=== PATIENT | male | born 1955 | race Caucasian/White ===

== ENCOUNTER → 2017-09-30 | Outpatient (CLI) | payer OTHER ==
[~2017-09-30] MED LIST: ASPI1TAB57 PO; ASPI81 PO; FINA5TAB2 PO; MELO15TA20 PO; METO25 PO; METO25TA3 PO; MULT-65 PO; NAPR220T95 PO; PRIL40CA PO; RAPA4CAP PO; TAMS0.4C4 PO
[2017-09-30 10:36] LABS: HEMATOCRIT 42.3 % (39.0-51.0); HEMOGLOBIN 14.7 GM/DL (13.0-17.0); MEAN CELL VOLUME 91.6 FL (80.0-100.0); MEAN CORPUSCULAR HEMOGLOBIN 31.8 PG (27.0-34.0); MEAN CORPUSCULAR HGB CONC 34.7 % (32.0-36.0); MEAN PLATELET VOLUME 8.4 FL (7.0-11.0); PLATELET COUNT 220 TH/MM3 (150-450); RED BLOOD COUNT 4.62 MIL/MM3 (4.50-5.90); RED CELL DISTRIBUTION WIDTH 12.8 % (11.6-17.2); WHITE BLOOD COUNT 8.7 TH/MM3 (4.0-11.0)
[2017-09-30 10:43] LABS: PROTHROMBIN TIME - PATIENT 10.4 SEC (9.8-11.6)
[2017-09-30 10:48] LABS: BILIRUBIN, URINE NEG (NEG); BLOOD, URINE NEG (NEG); GLUCOSE,URINE NEG (NEG); KETONE, URINE NEG (NEG); MUCUS URINE FEW /lpf (OCC); NITRITE,URINE NEG (NEG); URINE COLOR YELLOW (YELLW/STRAW); URINE LEUKOCYTE ESTERASE NEG (NEG)
[2017-09-30 11:31] LABS: CALCIUM 8.8 MG/DL (8.5-10.1); CREATININE 0.94 MG/DL (0.60-1.30)
--- NOTE | 2017-09-30 21:23 | EKG ---
Date Performed: 09/30/2017 Time Performed: 09:50:14 PTAGE: 62 years EKG: SINUS BRADYCARDIA LOW QRS VOLTAGE IN PRECORDIAL LEADS Since the prior tracing, there has be en no significant change BORDERLINE ECG PREVIOUS TRACING : 06/17/2015 11.13 DOCTOR: Bob Caraballo Interpretating Date/Time 09/30/2017 21:23:07
== END ==
LOC: CPRE 09:30
PROVIDERS: ATTEND Orthopaedic Surgery
DX: Z01.810 Encounter for preprocedural cardiovascular examination (principal); Z01.812 Encounter for preprocedural laboratory examination; M16.11 Unilateral primary osteoarthritis, right hip; M79.609 Pain in unspecified limb; R94.31 Abnormal electrocardiogram [ECG] [EKG]
CPT/HCPCS: 36415; 80048; 81001; 85027; 85610; 85730; 93005

== ENCOUNTER 2017-10-18 05:12 | Inpatient (IN) | payer OTHER ==
[~2017-10-18] VITALS: Ht 182.9 cm; Wt 132.7 kg
[~2017-10-18 05:12] MED LIST changes: -ASPI81 PO; -METO25 PO; -NAPR220T95 PO; -PRIL40CA PO; -RAPA4CAP PO
[2017-10-18] MEDS ORDERED: GENTAMICIN SULFATE 80 MG/2 ML VIAL ONE ×2 (05:39→05:56)
[2017-10-18] MEDS ORDERED: AMBI10TA PO (05:39)
[2017-10-18] MEDS ORDERED: LIVA2TAB PO (05:40)
[2017-10-18] MEDS ORDERED: LACTATED RINGER'S 1000 ML IV PRN (05:45)
[2017-10-18] MEDS ORDERED: SODIUM CHLORID 0.9% 500 ML IV PRN (05:45)
[2017-10-18] MEDS ORDERED: METOPROLOL TARTRATE 25 MG TAB PO PRN (05:45)
[2017-10-18] MEDS ORDERED: CHLORHEXIDINE GLUCONATE 2 % 1 PACK (2 CLOTHS) TOPICAL PRN (05:45)
[2017-10-18] MEDS ORDERED: CHLORHEXIDINE GLUCONATE 4% SOLN 120 ML BTL TOPICAL SCH (05:45)
[2017-10-18] MEDS ORDERED: POVIDONE IODINE 5% (ANTISEPSIS KIT) 4 APPLICATIONS EACH NARE PRN (05:45)
[2017-10-18] MEDS ORDERED: ceFAZolin 2 GM PREMIX 0 ML ONE (05:56)
[2017-10-18] MEDS: ceFAZolin 3,000 MG/NS 100 ML (if >120 kg) IV SCH ×4 (06:30→08:13)
[2017-10-18] MEDS ORDERED: ACETAMINOPHEN 1000 MG/100 ML 100 ML IV ONE (06:40)
[2017-10-18] MEDS ORDERED: PROPOFOL 500 MG/50 ML INJ 50 ML ONE (06:41)
[2017-10-18] MEDS ORDERED: FAMOTIDINE 20 MG/2 ML VIAL ONE (06:41)
--- NOTE | 2017-10-18 06:56 | HHI.FF ---
Face to Face Verification Diagnosis: (1) Status post total hip replacement, right Physical Therapy Gait training Hip: Total hip, Protocol: Right, Posterior hip precautions, Progress to weight bearing Canvas Knee Splint: When in bed & 2 pillows btw thighs Right LE Weight Bearing: WB as tolerated Right LE Range of Motion: Active ROM Nursing Nursing: Dressing changes (to begin on postop day 7.) Dressing Changes: Daily dressing change (to begin on postop day 7.), Coverderm/ Primapore Additional Instructions Remove Steri-strips on postop day 14. I have seen patient Cipriano Burgess on 10/18/17. My clinical findings support the need for the requested home health care services because: Ltd mobility - disease progression Limited ability to care for self High risk of falls I certify that my clinical findings support that this patient is homebound because: Post-op weakness Unsteady gait/balance Unsafe to leave home unassisted Delfino Gtz MD (Charles) Oct 18, 2017 06:56
[2017-10-18] MEDS ORDERED: ECASA81 PO (06:58)
[2017-10-18] MEDS ORDERED: TRANEXAMIC ACID IV SCH ×5 (07:00→10:00)
[2017-10-18] MEDS ORDERED: EXPAREL PERI-ARTICULAR INJECTION (TOTAL VOL. 60 ML) P-ARTICULR SCH ×2 (07:00)
[2017-10-18] MEDS ORDERED: MORPHINE SULFATE 8 MG/ML INJ IV PUSH PRN (07:00)
[2017-10-18] MEDS ORDERED: MAGNESIUM HYDROXIDE SUSP 30 ML CUP PO PRN (07:00)
[2017-10-18] MEDS ORDERED: ZOLPIDEM TARTRATE 5 MG TAB PO PRN (07:00)
[2017-10-18] MEDS ORDERED: BISACODYL 10 MG SUPP RECTAL PRN (07:00)
[2017-10-18] MEDS ORDERED: SODIUM CHLORIDE 0.9% IV SCH ×5 (07:00→10:00)
[2017-10-18] MEDS ORDERED: ONDANSETRON HCL 4 MG/2 ML VIAL IVP PRN (07:00)
[2017-10-18] MEDS: ASPIRIN EC 81 MG TABEC PO SCH ×2 (09:00→20:09)
[2017-10-18] MEDS: MULTIVITAMIN TAB PO SCH (09:00)
[2017-10-18] MEDS: PRAVASTATIN SOD 40 MG TAB PO SCH (09:00)
[2017-10-18] MEDS: FINASTERIDE 5 MG TAB PO SCH (09:00)
[2017-10-18] MEDS: METOPROLOL TARTRATE 25 MG TAB PO SCH ×2 (09:00→20:10)
[2017-10-18] MEDS ORDERED: ALBUMIN 5% INJ 500 ML IV ONE (09:02)
[2017-10-18 10:11] LABS: HEMATOCRIT 36.3 % (39.0-51.0); HEMOGLOBIN 12.3 GM/DL (13.0-17.0)
--- NOTE | 2017-10-18 10:38 | HHI.PR ---
Immediate Post Op Note Procedure Date: Oct 18, 2017 Pre Op Diagnosis: (1) Primary osteoarthritis of right hip Post Op Diagnosis: (1) Primary osteoarthritis of right hip Surgeon: Scooter Gtz M.D. English Tutor(s): YANIV Baron Procedure: Right total hip arthroplasty using [employer] prosthesis. Findings: There was severe osteoarthritis in the right hip with osteophytes and expose subchondral bone. Complications: None Specimen(s) removed: None Estimated blood loss: 1500ml Anesthesia: Spinal, Local (with Exparel) Drains: None IVF Patient to: PACU Patient Condition: Good Implant/Devices: SEE IMPLANT LOG (if applicable) Date/Time of Procedure: SEE SURGICAL CARE RECORD Delfino Gtz MD (Charles) Oct 18, 2017 10:38
--- NOTE | 2017-10-18 10:48 | PD.OP ---
Operative Report Date of Surgery: Oct 18, 2017 Preoperative Diagnosis: (1) Primary osteoarthritis of right hip Postoperative Diagnosis: (1) Primary osteoarthritis of right hip Procedure: Right total hip arthroplasty using [place] prosthesis. Anesthesia: Spinal with supplemental local using Exparel Surgeon: Scooter Gtz M.D. Polymer Engineer(s): YANIV Baron Operation and Findings: Indications and Findings: This 62-year-old man has had progressive worsening of pain in his right hip over the past 3 years. This is progressively worsening to the point that he has difficulty getting up from a seated position, has pain when walking and has continued difficulty with his hip. He has not responded to anti-inflammatory agents, analgesics, exercises, intra-articular corticosteroids, ambulatory aids and physical therapy. Imaging studies show loss of articular cartilage [id number] particularly in the depths of the day with some osteophytes in the femoral head and acetabulum. Was seen most on the MRI. Operative findings show severe osteoarthritis in the hip with loss of articular cartilage to expose subchondral bone the femur and the acetabulum with some small osteophytes and some eburnation. The prosthesis used was a [place] prosthesis with the femoral component being an Accolade II, size 7 x 132 with a Biolox Delta head size 36 mm outer diameter with a -4 mm neck length in the acetabulum being a Tritanium cluster shell size 54 mm outer diameter with a 0 liner of X3 polyethylene with a 36 mm inner diameter. The patient was brought to the clean air operating suite and a spinal anesthetic was administered. The patient was then positioned into a lateral position with the right hip up on a Electronifieet lateral positioner. The hip and lower extremity were then prepped with alcohol, Hibiclens and ChloraPrep and draped in the usual manner with the hip draped free. Patient received prophylactic antibiotics preoperatively. The patient also received tranexamic acid preoperatively. An appropriate timeout procedure was carried out. An incision was then made from the midportion of the greater trochanter proximally and posteriorly paralleling the fibers of the gluteus brennen. The incision was deepened through subcutaneous tissues down to the fascia jesu and gluteus fascia. The gluteus fascia was then split longitudinally in line with its fibers up to the upper portion of the fascia jesu. With wound towels in place, the Charnley retractor was inserted. The sciatic nerve was identified and protected throughout the procedure. Dissection was then carried down to the interval between the gluteus minimus and the piriformis. A retractor was inserted. The piriformis and obturator conjoined tendon was released from the greater trochanter and reflected off the capsule. A capsulotomy was made longitudinally along the femoral neck to the base of the femoral neck and then curved distally along the posterior aspect of the greater trochanter. The hip was then internally rotated. Further release of the external rotators was carried out exposing the hip. The hip was then dislocated. The femoral neck was transected at the appropriate level using the oscillating saw placement of appropriate retractors. The femoral head was then removed. Preparation of the femur was initiated with a box osteotome followed by a curet to identify the medullary canal. Broaching was then initiated with the size 0 broach and went and 1 size increments up to size 7. The broach handle was removed. The femoral neck was then trimmed with a calcar planar. Attention was then directed to the acetabulum. Soft tissues were debrided from the acetabulum. Retractors were placed about the acetabulum. Reaming was then initiated with the 47 millimeter reamer and went in to millimeter increments up to size 51 and then 1 mm increments up to the 53 millimeter diameter reamer. A trial reduction with the 54 millimeter trial prosthesis was carried out. When this was deemed to be appropriate, the trial prosthesis was removed. The acetabulum was then irrigated and cleaned. The actual prosthesis as noted above was then impacted into place and seated appropriately. Drill holes were then made and sounded. Appropriate sized screws were then inserted to stabilize the acetabulum further. The liner as noted above was then inserted into the acetabular shell and impacted into place. Osteophytes were trimmed from the acetabulum. Local anesthetic was then administered throughout the area of the acetabulum and anterior aspect of the femur. The trial neck was then placed on the broach for the above-noted prosthesis. The femoral head trial was placed onto the femoral neck with the external diameter of the head being 36 millimeters and the neck length being -5 millimeters. A trial reduction was then carried out. Re-broaching was then carried out in the same technique was again carried out. The stability, leg length and motion were excellent. There was no pistoning. The trial prosthesis was removed. The broach was removed. The femoral component was then impacted into the medullary canal of the femur after irrigation and suctioning. When this was appropriately seated a trial reduction was again carried out with the trial prosthesis. Again, there was no pistoning. The leg length was appropriate. The stability and motion were excellent. The trial prosthesis was then removed. After cleaning and drying the trunion of the femoral component, the above-noted femoral head was impacted onto the trunnion. The hip was then reduced. The stability and mobility were again checked along with leg lengths as noted above. The hip was then positioned appropriately and closure commenced after the remainder of the local anesthetic was injected throughout the hip. The external rotators and capsule were then repaired with #1 Vicryl interrupted transosseous sutures with a Krakw technique to reattach the external rotators and capsule to the posterior aspect of the greater trochanter. The capsule itself on the superior aspect was closed with #1 Vicryl interrupted [id number] sutures. The sciatic nerve was again inspected. The fascia jesu and gluteus fascia were then repaired with #1 Vicryl interrupted [id number] sutures. The subcutaneous tissues were closed with 2-0 Vicryl interrupted simple sutures with buried knots. The skin was closed with a continuous subcuticular closure of 4-0 Monocryl. The wound was then approximated with Steri-Strips. A silver impregnated dressing was applied to the hip. A knee immobilizer was applied to the leg. The patient was then transferred from the operating room to the recovery room in satisfactory condition having tolerated the procedure well. Counts are correct. Specimens: None. Estimated blood loss: 1500 mL Delfino Gtz MD (Charles) Oct 18, 2017 10:48
[2017-10-18] MEDS ORDERED: HYDR-3580 PO (10:56)
[2017-10-18] MEDS: LACTATED RINGER'S 1000 ML INJ 1,000 ML IV SCH ×2 (11:00→20:21)
[2017-10-18] MEDS ORDERED: HYDROmorphone HCL PF 2 MG/ML VIAL ONE (11:05)
[2017-10-18] MEDS ORDERED: MIDAZOLAM HCL 2 MG/2 ML VIAL ONE (11:11)
[2017-10-18] MEDS ORDERED: *morphine SULFATE 10 MG/ML PERIprocedure ONLY ONE ×2 (11:37→12:56)
[2017-10-18] MEDS ORDERED: *MEPERIDINE 25 MG INJ VIAL PERIprocedural Use ONLY ONE (11:48)
--- NOTE | 2017-10-18 11:54 | RADRPT ---
EXAM DATE/TIME: 10/18/2017 11:18 [facility] COMPARISON: No previous studies available for comparison. INDICATIONS : Post op right hip surgery MEDICAL HISTORY : None. SURGICAL HISTORY : None. ENCOUNTER: Initial ACUITY: 1 day PAIN SCORE: 8/10 LOCATION: Right hip FINDINGS: 3 images performed in the recovery room after total hip arthroplasty demonstrate a non-cemented arthr oplasty with superior acetabular screw. Alignment is anatomic. No radiopaque foreign bodies. CONCLUSION: Expected postoperative changes status post total hip arthroplasty. Hunter Wagner MD on October 18, 2017 at 11:52 Board Certified Radiologist. This report was verified electronically.
[2017-10-18] MEDS ORDERED: LACTATED RINGER'S 1000 ML INJ 2,000 ML IV ONE (12:00)
[2017-10-18] MEDS ORDERED: PHENYLEPH/NS 1000 MCG/10 ML SYR IV ONE (12:00)
[2017-10-18] MEDS ORDERED: PROPOFOL 200 MG/20 ML AMP IV ONE (12:00)
[2017-10-18] MEDS ORDERED: DEXAMETHASONE SOD PHOS 4 MG/ML VIAL IV ONE (12:00)
[2017-10-18] MEDS ORDERED: ePHEDrine/NS 25 MG/5 ML SYRINGE IV ONE (12:00)
[2017-10-18] MEDS ORDERED: PHENYLEPHRINE HCL 10 MG/ML VIAL IV ONE (12:00)
[2017-10-18] MEDS ORDERED: ONDANSETRON HCL 4 MG/2 ML VIAL IV ONE (12:00)
[2017-10-18] MEDS ORDERED: KETOROLAC TROMETHAMINE 30 MG/ML (IVP) VIAL ONE (12:10)
--- NOTE | 2017-10-18 13:25 | PD.CONS ---
HPI Service [facility] Consult Requested By Orthopedic surgery Reason for Consult Medical management Primary Care Physician Amol Muniz MD Diagnoses: History of Present Illness 62-year-old man with a history of hypertension, hyperlipidemia, right severe hip OA and despite medical management including corticosteroid 3 injections, physical therapy and NSAIDs continue to have severe right knee pain affecting his daily living of activity including ambulation. The patient was taken to the operating room and underwent right total hip arthroplasty. Patient was seen in PACU and denies any chest pain, shortness of breath. Vitals stable. Review of Systems Except as stated in HPI: all other systems reviewed are Neg Past Family Social History Allergies: Coded Allergies: No Known Allergies (Unverified Allergy, Unknown, 10/18/17) Past Medical History Hypertension, hyperlipidemia, BPH Past Surgical History Right total hip arthroplasty Reported Medications Lopressor Livalo Flomax Aspirin Finasteride Family History Noncontributory Social History Denies tobacco, illicit drug intake. Reports social alcohol Physical Exam Vital Signs Vital Signs Date Time Temp Pulse Resp B/P (MAP) Pulse Ox O2 Delivery O2 Flow Rate FiO2 10/18/17 11:00 97.8 79 20 127/72 (90) 96 Simple Mask 6 10/18/17 05:44 98.7 80 20 143/83 (103) 95 Physical Exam GENERAL: This is a well-nourished, well-developed patient, in no apparent distress. SKIN: No rashes, ecchymoses or lesions. Cool and dry. HEAD: Atraumatic. Normocephalic. No temporal or scalp tenderness. EYES: Pupils equal round and reactive. Extraocular motions intact. No scleral icterus. No injection or drainage. ENT: Nose without bleeding, purulent drainage or septal hematoma. Throat without erythema, tonsillar hypertrophy or exudate. Uvula midline. Airway patent. NECK: Trachea midline. No JVD or lymphadenopathy. Supple, nontender, no meningeal signs. CARDIOVASCULAR: Regular rate and rhythm without murmurs, gallops, or rubs. RESPIRATORY: Clear to auscultation. Breath sounds equal bilaterally. No wheezes , rales, or rhonchi. GASTROINTESTINAL: Abdomen soft, non-tender, nondistended. No hepato-splenomegaly , or palpable masses. No guarding. MUSCULOSKELETAL: s/p Right hip repair, dressing in place-neurovascular intact NEUROLOGICAL: Awake and alert. Cranial nerves II through XII intact. Motor and sensory grossly within normal limits. Five out of 5 muscle strength in all muscle groups. Normal speech. Laboratory Laboratory Tests Test 10/18/17 09:50 Hemoglobin 12.3 Hematocrit 36.3 Result Diagram: 10/18/17 0950 Imaging Last Impressions Hip X-Ray 10/18/17 0651 Signed Impressions: Service Date/Time: Wednesday, October 18, 2017 11:18 - CONCLUSION: Expected postoperative changes status post total hip arthroplasty. Hunter Wagner MD Assessment and Plan Assessment and Plan 70 year-old man with Status post right total Hip arthroplasty Management per orthopedic surgery Continue with current postop care DVT prophylaxis per orthopedic surgery PT consult to treat and eval Hyperlipidemia/Hypertension/BPH Resume outpatient medications DVT prophylaxis: ASA Code Status Full code Discussed Condition With Patient Kenneth Delatorre MD Oct 18, 2017 13:25
[2017-10-18] MEDS ORDERED: Post-op Orders (for Pharmacy) XX ONE (14:00)
[2017-10-18] MEDS ORDERED: DO NOT ADM ANY ANTICOAGULANT DRUGS PRN (14:00)
[2017-10-18] MEDS: ACETAMINOPHEN/HYDROcodone 325 MG/7.5 MG TAB PO PRN ×2 (15:55→20:10)
[2017-10-18 16:00] VITALS: BP 131/76; PULSE 80; RESP 17; TEMP 95.5; O2SAT 93
[2017-10-18] MEDS: KETOROLAC TROMETHAMINE 30 MG/ML (IVP) VIAL IVP SCH (20:09)
[2017-10-18] MEDS: TAMSULOSIN HCL 0.4 MG CAP PO SCH (20:10)
[2017-10-18 20:30] VITALS: BP 114/66; PULSE 89; RESP 18; TEMP 97.8; O2SAT 94
[2017-10-18 23:20] VITALS: BP 125/66; PULSE 85; RESP 18; TEMP 97.3; O2SAT 94
[2017-10-19] VITALS (7 sets, daily range): BP systolic 94–106; BP diastolic 45–63; PULSE 75–77; RESP 17–20; TEMP 97.7–99.5; O2SAT 96–99
[2017-10-19] MEDS: ACETAMINOPHEN/HYDROcodone 325 MG/7.5 MG TAB PO PRN ×5 (00:23→20:21)
[2017-10-19] MEDS: KETOROLAC TROMETHAMINE 30 MG/ML (IVP) VIAL IVP SCH ×4 (01:21→20:20)
[2017-10-19 06:49] LABS: HEMATOCRIT 28.9 % (39.0-51.0)
--- NOTE | 2017-10-19 07:22 | PD.ORT.PN ---
Subjective Post Op Day #: 1 Subjective Remarks He is doing relatively well. He has been walking around his room and to the bathroom. He has not been out in the madden. He indicates that he has a multilevel house and going home might be difficult. He is considering longterm facility placement. Distance Walked 15 feet, limited by nausea. Objective Vitals Vital Signs Date Time Temp Pulse Resp B/P (MAP) Pulse Ox O2 Delivery O2 Flow Rate FiO2 10/19/17 04:15 98.3 75 17 106/58 (74) 97 10/18/17 23:20 97.3 85 18 125/66 (85) 94 10/18/17 20:30 97.8 89 18 114/66 (82) 94 10/18/17 16:00 95.5 80 17 131/76 (94) 93 10/18/17 15:00 98.2 84 20 128/67 (87) 92 Nasal Cannula 2 10/18/17 14:00 84 20 121/65 (83) 97 Nasal Cannula 2 10/18/17 13:00 86 20 133/61 (85) 97 Nasal Cannula 2 10/18/17 12:00 84 20 121/57 (78) 97 Nasal Cannula 2 10/18/17 11:45 84 20 125/56 (79) 97 Nasal Cannula 2 10/18/17 11:30 83 20 133/69 (90) 97 Nasal Cannula 2 10/18/17 11:15 82 20 121/68 (85) 96 10/18/17 11:00 97.8 79 20 127/72 (90) 96 Simple Mask 6 I/O 10/18/17 10/18/17 10/18/17 10/19/17 10/19/17 10/19/17 07:00 15:00 23:00 07:00 15:00 23:00 Intake Total 2700 ml 100 ml 1120 ml Output Total 1500 ml 1800 ml Balance 1200 ml 100 ml -680 ml Intake Oral 1020 ml IV Total 2700 ml 100 ml 100 ml Output Urine Total 1800 ml Estimated Blood Loss 1500 ml # Bowel Movements 0 Result Diagram: 10/19/17 0543 Imaging Last 72 hours Impressions Hip X-Ray 10/18/17 0651 Signed Impressions: Service Date/Time: Wednesday, October 18, 2017 11:18 - CONCLUSION: Expected postoperative changes status post total hip arthroplasty. Hunter Wagner MD Objective Remarks He is resting comfortably, supine in bed. The neurovascular status is intact. The dressing is dry and intact. Assessment & Plan Ortho Post Op Day #: 1 Problem List: (1) Status post total hip replacement, right ICD Codes: Z96.641 - Presence of right artificial hip joint Plan: Continue postop care and PT. (2) Primary osteoarthritis of right hip ICD Codes: M16.11 - Unilateral primary osteoarthritis, right hip Status: Resolved Assessment and Plan Condition: Good. Orthopedically stable. DVT prophylaxis: Sequentials, AR stockings, aspirin 81 mg twice daily. Discharge plans: Home with home health care preferably, however he may want to go to a longterm facility ([facility]). An appointment was scheduled through the office. Prescriptions: [place] 7.5/325 [] Delfino Gtz MD (Charles) Oct 19, 2017 07:22
--- NOTE | 2017-10-19 07:59 | HHI.DS ---
Discharge Summary Admission Date Oct 18, 2017 at 05:12 Discharge Date: Oct 20, 2017 Admitting Diagnosis Primary osteoarthritis, right hip. Diagnosis: (1) Status post total hip replacement, right Diagnosis: Principal ICD Codes: Z96.641 - Presence of right artificial hip joint Status: Acute (2) Primary osteoarthritis of right hip Diagnosis: Principal ICD Codes: M16.11 - Unilateral primary osteoarthritis, right hip Status: Resolved Procedures Right total hip arthroplasty using Star prosthesis on 10/18/2017. Brief History This is a 62 year old male patient has had progressive worsening of pain over the past several years in his right hip. He has tenderness on motion. He has had limitation of activities because of this. He has not responded to conservative, nonoperative methods. Physical findings showed painful motion and nonantalgic gait. X-rays and an MRI showed severe arthritis. CBC/BMP: 10/19/17 0543 Significant Findings Laboratory Tests Test 10/18/17 09:50 10/19/17 05:43 Hemoglobin 12.3 GM/DL (13.0-17.0) 10.0 GM/DL (13.0-17.0) Hematocrit 36.3 % (39.0-51.0) 28.9 % (39.0-51.0) Imaging Last 72 hours Impressions Hip X-Ray 10/18/17 0651 Signed Impressions: Service Date/Time: Wednesday, October 18, 2017 11:18 - CONCLUSION: Expected postoperative changes status post total hip arthroplasty. Hunter Wagner MD PE at Discharge He is resting comfortably, supine in bed. The neurovascular status is intact. The dressing is dry and intact. Transfer Summary Physical therapy is to continue with ambulation training. Weightbearing will be full. Therapy should be done twice daily. He will also need occupational therapy for ADL related to a posterior total hip arthroplasty. Routine posterior total hip precautions are to be followed and instructed. His dressing should remain in place for 7 days. Daily dressing changes will begin on postoperative day 7. Steri-Strips are to be removed on postoperative day 14. Hospital Course The patient was admitted as noted above. The above noted operative procedure was carried out that day. Preoperatively prophylactic antibiotics were administered Ancef according to protocol. These were continued postoperatively. The patient also received tranexamic acid to help with hemostasis according to protocol. In the postanesthesia care unit, mechanical methods of DVT prophylaxis in the form of AR stockings and sequentials were initiated. Physical therapy was initiated on the day of surgery. On postoperative day #1 physical therapy continued. DVT prophylaxis with aspirin 81 mg twice a day was initiated at this time. The patient continued physical therapy throughout the hospitalization. The distance walked improved throughout the hospitalization. He was walking 108 feet with physical therapy on postoperative day 1 and also was walking independently in the madden with his . The patient was discharged on postoperative day 2 with the disposition being to to a [facility] facility([facility]). An appointment for follow-up was made prior to admission. Pt Condition on Discharge: Good Discharge Disposition: Disch w/ Home Health Serv Discharge Instructions Diet Instructions: As Tolerated, No Restrictions Activities You Can Perform: Full Weight Bearing, Shower Only-No Bath Activities to Avoid: Lifting/Bending, Strenuous Activity, Bathing, Driving Additional Activity Instruc.: He needs to be taught safe stair climbing since he has stairs at home. Follow up Referrals: Orthopedics with Delfino Gtz MD (Charles) New Medications: Aspirin (Aspirin DR) 81 Mg Tabdr 81 MG PO BID for Prevent Blood Clot for 30 Days, #60 TAB Hydrocodone/Acetaminophen (Hydrocodone-Acetamin 7.5-325) 7.5 Mg-325 Mg Tablet 1 TAB PO Q4H PRN for PAIN SCALE 1 TO 10, #50 TAB Continued Medications: Finasteride (Finasteride) 5 Mg Tab 5 MG PO DAILY for Manage Prostate Problems, #30 TAB 0 Refills Do not crush. Meloxicam (Meloxicam) 15 Mg Tab 15 MG PO DAILY for Arthritis Pain, #30 TAB 0 Refills Metoprolol Tartrate (Metoprolol Tartrate) 25 Mg Tab 25 MG PO BID, #60 TAB 0 Refills Multiple Vitamin (Multi-Vitamin Daily) 1 Tab Tab 1 TAB PO DAILY for Nutritional Supplement, TAB 0 Refills Pitavastatin (Livalo) 2 Mg Tab 2 MG PO DAILY for Cholesterol Management, #30 TAB 0 Refills Tamsulosin (Tamsulosin) 0.4 Mg Cap 0.4 MG PO HS for Manage Prostate Problems, #30 CAP 0 Refills Zolpidem (Ambien) 10 Mg Tab 10 MG PO HS PRN for INSOMNIA, TAB 0 Refills Discontinued Medications: Aspirin (Aspirin 81) 81 Mg Tabdr 81 MG PO DAILY, TAB 0 Refills Delfino Gtz MD (Charles) Oct 19, 2017 07:59
[2017-10-19] MEDS: PRAVASTATIN SOD 40 MG TAB PO SCH (08:08)
[2017-10-19] MEDS: FINASTERIDE 5 MG TAB PO SCH (08:09)
[2017-10-19] MEDS: MULTIVITAMIN TAB PO SCH (08:09)
[2017-10-19] MEDS: METOPROLOL TARTRATE 25 MG TAB PO SCH ×2 (08:10→20:30)
[2017-10-19] MEDS: ASPIRIN EC 81 MG TABEC PO SCH ×2 (08:10→20:20)
[2017-10-19] MEDS: LACTATED RINGER'S 1000 ML INJ 1,000 ML IV SCH ×2 (08:15→21:53)
--- NOTE | 2017-10-19 12:45 | HHI.PR ---
Subjective Remarks Patient seen and examined Reports some throbbing pain otherwise no acute event overnight Patient was able to ambulate with assistance today. Objective Vitals Vital Signs Date Time Temp Pulse Resp B/P (MAP) Pulse Ox O2 Delivery O2 Flow Rate FiO2 10/19/17 11:55 98.3 77 18 94/51 (65) 97 10/19/17 10:42 18 10/19/17 08:52 18 10/19/17 08:00 97.7 77 18 97/56 (70) 97 10/19/17 07:43 98 10/19/17 04:15 98.3 75 17 106/58 (74) 97 10/18/17 23:20 97.3 85 18 125/66 (85) 94 10/18/17 20:30 97.8 89 18 114/66 (82) 94 10/18/17 16:00 95.5 80 17 131/76 (94) 93 10/18/17 15:00 98.2 84 20 128/67 (87) 92 Nasal Cannula 2 10/18/17 14:00 84 20 121/65 (83) 97 Nasal Cannula 2 10/18/17 13:00 86 20 133/61 (85) 97 Nasal Cannula 2 I/O 10/18/17 10/18/17 10/18/17 10/19/17 10/19/17 10/19/17 07:00 15:00 23:00 07:00 15:00 23:00 Intake Total 2700 ml 100 ml 1120 ml Output Total 1500 ml 1800 ml Balance 1200 ml 100 ml -680 ml Intake Oral 1020 ml IV Total 2700 ml 100 ml 100 ml Output Urine Total 1800 ml Estimated Blood Loss 1500 ml # Bowel Movements 0 Result Diagram: 10/19/17 0543 Imaging Last Impressions Hip X-Ray 10/18/17 0651 Signed Impressions: Service Date/Time: Wednesday, October 18, 2017 11:18 - CONCLUSION: Expected postoperative changes status post total hip arthroplasty. Hunter Wagner MD Objective Remarks GENERAL: NAD SKIN: Warm and dry. HEAD: Normocephalic. EYES: No scleral icterus. No injection or drainage. NECK: Supple, trachea midline. No JVD or lymphadenopathy. CARDIOVASCULAR: Regular rate and rhythm without murmurs, gallops, or rubs. RESPIRATORY: Breath sounds equal bilaterally. No accessory muscle use. GASTROINTESTINAL: Abdomen soft, non-tender, nondistended. MUSCULOSKELETAL: No cyanosis, or edema. s/p right hip repair-dressing in place and neurovascular intact BACK: Nontender without obvious deformity. No CVA tenderness. A/P Assessment and Plan 70 year-old man with Status post right total Hip arthroplasty Management per orthopedic surgery Continue with current postop care DVT prophylaxis per orthopedic surgery PT to treat and eval Hyperlipidemia/Hypertension/BPH Continue outpatient medications DVT prophylaxis: Kenneth Baptiste MD Oct 19, 2017 12:45
[2017-10-19] MEDS: DOCUSATE SODIUM 100 MG CAP PO SCH (20:20)
[2017-10-19] MEDS: TAMSULOSIN HCL 0.4 MG CAP PO SCH (20:20)
[2017-10-20] VITALS: BP 109/56; PULSE 89; RESP 20; TEMP 100.3; O2SAT 95
[2017-10-20] MEDS: ACETAMINOPHEN/HYDROcodone 325 MG/7.5 MG TAB PO PRN ×4 (00:28→13:18)
[2017-10-20] MEDS: KETOROLAC TROMETHAMINE 30 MG/ML (IVP) VIAL IVP SCH ×2 (02:31→08:55)
[2017-10-20 04:00] VITALS: BP 101/61; PULSE 79; RESP 20; TEMP 98.3; O2SAT 93
[2017-10-20 04:28] LABS: HEMATOCRIT 26.7 % (39.0-51.0); HEMOGLOBIN 9.4 GM/DL (13.0-17.0)
--- NOTE | 2017-10-20 07:25 | PD.ORT.PN ---
Subjective Post Op Day #: 2 Subjective Remarks He is doing relatively well. He has been walking in the [place]. He was not taught how to use stairs in the class yesterday. He indicates that he has a multilevel house and going directly home might be difficult. He is planning to go to a snf facility. Distance Walked 108 feet with PT. Objective Vitals Vital Signs Date Time Temp Pulse Resp B/P (MAP) Pulse Ox O2 Delivery O2 Flow Rate FiO2 10/20/17 04:00 98.3 79 20 101/61 (74) 93 10/20/17 00:00 100.3 89 20 109/56 (73) 95 10/19/17 20:00 99.3 77 20 102/63 (76) 99 10/19/17 17:53 96 21 10/19/17 16:00 99.5 75 18 97/45 (62) 96 10/19/17 15:13 18 10/19/17 14:42 18 10/19/17 11:55 98.3 77 18 94/51 (65) 97 10/19/17 08:00 97.7 77 18 97/56 (70) 97 10/19/17 07:43 98 I/O 10/19/17 10/19/17 10/19/17 10/20/17 10/20/17 10/20/17 07:00 15:00 23:00 07:00 15:00 23:00 Intake Total 1120 ml 480 ml 1800 ml Output Total 1800 ml 325 ml 425 ml 1000 ml Balance -680 ml 155 ml -425 ml 800 ml Intake Oral 1020 ml 480 ml 1800 ml IV Total 100 ml Output Urine Total 1800 ml 325 ml 425 ml 1000 ml # Voids 1 1 4 # Bowel Movements 0 0 0 Result Diagram: 10/20/17 0355 Imaging Last 72 hours Impressions Hip X-Ray 10/18/17 0651 Signed Impressions: Service Date/Time: Wednesday, October 18, 2017 11:18 - CONCLUSION: Expected postoperative changes status post total hip arthroplasty. Hunter Wagner MD Procedures Right total hip arthroplasty using [place] prosthesis on 10/18/2017. Objective Remarks He is resting comfortably, supine in bed. The neurovascular status is intact. The dressing is dry and intact. There is no drainage, erythema nor induration Assessment & Plan Ortho Post Op Day #: 2 Problem List: (1) Status post total hip replacement, right ICD Codes: Z96.641 - Presence of right artificial hip joint Status: Acute Plan: Continue postop care and PT. (2) Primary osteoarthritis of right hip ICD Codes: M16.11 - Unilateral primary osteoarthritis, right hip Status: Resolved Assessment and Plan Condition: Good. Orthopedically stable. DVT prophylaxis: Sequentials, AR stockings, aspirin 81 mg twice daily. Discharge plans: Rehabilitation at a snf facility ([facility]). An appointment was scheduled through the office. Prescriptions: [place] 7.5/325 [] Delfino Gtz MD (Charles) Oct 20, 2017 07:25
[2017-10-20 07:36] VITALS: BP 97/41; PULSE 80; RESP 19; TEMP 97.1; O2SAT 95
[2017-10-20] MEDS: MULTIVITAMIN TAB PO SCH (08:55)
[2017-10-20] MEDS: DOCUSATE SODIUM 100 MG CAP PO SCH (08:55)
[2017-10-20] MEDS: FINASTERIDE 5 MG TAB PO SCH (08:55)
[2017-10-20] MEDS: ASPIRIN EC 81 MG TABEC PO SCH (08:55)
[2017-10-20] MEDS: PRAVASTATIN SOD 40 MG TAB PO SCH (08:55)
[2017-10-20] MEDS: METOPROLOL TARTRATE 25 MG TAB PO SCH (09:00)
[2017-10-20] MEDS: LACTATED RINGER'S 1000 ML INJ 1,000 ML IV SCH (11:00)
[2017-10-20 11:30] VITALS: BP 149/69; PULSE 106; RESP 19; TEMP 97.8; O2SAT 96
--- NOTE | 2017-10-20 12:28 | HHI.PR ---
Subjective Remarks Patient seen and examined No acute event overnight Pain was tolerable No BM Objective Vitals Vital Signs Date Time Temp Pulse Resp B/P (MAP) Pulse Ox O2 Delivery O2 Flow Rate FiO2 10/20/17 11:30 97.8 106 19 149/69 (95) 96 10/20/17 10:38 21 10/20/17 10:03 18 10/20/17 10:03 18 10/20/17 07:36 97.1 80 19 97/41 (59) 95 10/20/17 04:00 98.3 79 20 101/61 (74) 93 10/20/17 00:00 100.3 89 20 109/56 (73) 95 10/19/17 20:00 99.3 77 20 102/63 (76) 99 10/19/17 17:53 96 21 10/19/17 16:00 99.5 75 18 97/45 (62) 96 10/19/17 14:42 18 I/O 10/19/17 10/19/17 10/19/17 10/20/17 10/20/17 10/20/17 07:00 15:00 23:00 07:00 15:00 23:00 Intake Total 1120 ml 480 ml 1800 ml Output Total 1800 ml 325 ml 425 ml 1000 ml Balance -680 ml 155 ml -425 ml 800 ml Intake Oral 1020 ml 480 ml 1800 ml IV Total 100 ml Output Urine Total 1800 ml 325 ml 425 ml 1000 ml # Voids 1 1 4 # Bowel Movements 0 0 0 Result Diagram: 10/20/17 0355 Objective Remarks GENERAL: NAD SKIN: Warm and dry. HEAD: Normocephalic. EYES: No scleral icterus. No injection or drainage. NECK: Supple, trachea midline. No JVD or lymphadenopathy. CARDIOVASCULAR: Regular rate and rhythm without murmurs, gallops, or rubs. RESPIRATORY: Breath sounds equal bilaterally. No accessory muscle use. GASTROINTESTINAL: Abdomen soft, non-tender, nondistended. MUSCULOSKELETAL: No cyanosis, or edema. s/p right hip repair-dressing in place and neurovascular intact BACK: Nontender without obvious deformity. No CVA tenderness. A/P Assessment and Plan 70 year-old man with Status post right total Hip arthroplasty Management per orthopedic surgery Continue with current postop care DVT prophylaxis per orthopedic surgery PT to treat and eval Hyperlipidemia/Hypertension/BPH Continue outpatient medications Constipation Continue with current stool softener DVT prophylaxis: Kenneth Baptiste MD Oct 20, 2017 12:28
== END 2017-10-20 14:04 | DRG 470 ==
LOC: HSDI 05:12 → N06A 15:18
PROVIDERS: ADMIT Orthopaedic Surgery; ATTEND Orthopaedic Surgery
PROC: 0SR902A Replacement of Right Hip Joint with Metal on Polyethylene Synthetic Substitute, Uncemented, Open Approach (ICD-10-PCS; principal; 2017-10-18 06:41)
DX: M16.11 Unilateral primary osteoarthritis, right hip (principal); E66.9 Obesity, unspecified; I10 Essential (primary) hypertension; E78.5 Hyperlipidemia, unspecified; I25.10 Atherosclerotic heart disease of native coronary artery without angina pectoris; N40.0 Benign prostatic hyperplasia without lower urinary tract symptoms; K21.9 Gastro-esophageal reflux disease without esophagitis; K59.00 Constipation, unspecified; Z68.39 Body mass index [BMI] 39.0-39.9, adult; Z79.82 Long term (current) use of aspirin
CPT/HCPCS: 73502; 85014; 85018; 86850; 86900; 86901; 86920; 94150; C1776; J0131; J0690; J1100; J1170; J1580; J1885; J2175; J2250; J2270; J2370; J2405; J3010; J7120; P9045

== ENCOUNTER 2017-10-26 10:12 | Emergency (ER) | payer OTHER ==
[~2017-10-26] VITALS: Ht 182.9 cm; Wt 130.0 kg
[~2017-10-26 10:12] MED LIST changes: +AMBI10TA PO; -ASPI1TAB57 PO; +ECASA81 PO; +HYDR-3580 PO; +LIVA2TAB PO
[2017-10-26] MEDS ORDERED: DILTIAZEM HCL 25 MG/5 ML VIAL IV ONE (11:00)
[2017-10-26 11:07] VITALS: BP 101/56; PULSE 154; RESP 20; O2SAT 100
--- NOTE | 2017-10-26 11:09 | PD ---
HPI Chief Complaint: Cardiac Complaint Time Seen by Provider: 10:43 Travel History International Travel<30 days: No Contact w/Intl Traveler<30days: No Traveled to known affect area: No History of Present Illness HPI This patient complains of rapid heartbeat. He's eating breakfast at 850 this morning when he felt like his heart started beating rapidly. He did not have any chest pain or pressure or tightness or heaviness. No presyncopal symptoms. It lasted about 30 minutes and his sensation went away. Presents to the ER 2 hours later and has a heart rate in the 150s but not having acute symptoms. Severity symptoms at this time is mild. No alleviating factors. No exacerbating factors. He had a heart catheterization in 2014 showing mild nonobstructive CAD. He had a similar thing happen to him back in 2014 which necessitated a stress test which was abnormal followed by this catheterization. He hasn't had any problems since. PFSH Past Medical History Hx Anticoagulant Therapy: Yes (asa) Cancer: No Cardiovascular Problems: Yes (CHEST PAIN) High Cholesterol: Yes Diabetes: No Diminished Hearing: No Endocrine: No Gastrointestinal Disorders: Yes Glaucoma: No Genitourinary: Yes (ENLARGED PROSTATE) Hepatitis: No Hiatal Hernia: No Hypertension: Yes Immune Disorder: No Musculoskeletal: Yes (OA in the hip) Neurologic: No Psychiatric: No Reproductive: No Respiratory: Yes (DEVIATED SEPTUM) Thyroid Disease: No Past Surgical History Abdominal Surgery: No AICD: No Cardiac Surgery: Yes (CARDIAC CATH) Ear Surgery: No Endocrine Surgery: No Eye Surgery: No Genitourinary Surgery: No Gynecologic Surgery: No Joint Replacement: No Oral Surgery: No Pacemaker: No Thoracic Surgery: No Other Surgery: Yes (SEPTOPLASTY) Social History Alcohol Use: Yes Tobacco Use: No Substance Use: No Allergies-Medications (Allergen,Severity, Reaction): Coded Allergies: No Known Allergies (Unverified Allergy, Unknown, 10/26/17) Reported Meds & Prescriptions Reported Meds & Active Scripts Active Xarelto (Rivaroxaban) 20 Mg Tab 20 Mg PO DAILY Hydrocodone-Acetamin 7.5-325 (Hydrocodone/Acetaminophen) 7.5 Mg-325 Mg Tablet 1 Tab PO Q4H PRN Aspirin DR (Aspirin) 81 Mg Tabdr 81 Mg PO BID 30 Days Reported Livalo (Pitavastatin) 2 Mg Tab 2 Mg PO DAILY Ambien (Zolpidem Tartrate) 10 Mg Tab 10 Mg PO HS PRN Metoprolol Tartrate 25 Mg Tab 25 Mg PO BID Multi-Vitamin Daily (Multiple Vitamin) 1 Tab Tab 1 Tab PO DAILY Tamsulosin (Tamsulosin HCl) 0.4 Mg Cap 0.4 Mg PO HS Finasteride 5 Mg Tab 5 Mg PO DAILY Do not crush. Meloxicam 15 Mg Tab 15 Mg PO DAILY Review of Systems General / Constitutional: No: Fever Eyes: No: Visual changes HENT: No: Headaches Cardiovascular: Positive: Palpitations, Tachycardia, No: Chest Pain or Discomfort Respiratory: No: Shortness of Breath Gastrointestinal: No: Abdominal Pain Genitourinary: No: Dysuria Musculoskeletal: No: Pain Skin: No Rash Neurologic: No: Weakness Psychiatric: No: Depression Endocrine: No: Polydipsia Hematologic/Lymphatic: No: Easy Bruising Physical Exam Narrative GENERAL: Well-nourished, well-developed patient in no apparent distress. SKIN: Focused skin assessment reveals no rash and nodules. Skin is Warm and dry. HEAD: Atraumatic. Normocephalic. EYES: Pupils equal and round. No scleral icterus. No injection or drainage. ENT: No nasal bleeding or discharge. Mucous membranes pink and moist. NECK: Trachea midline. No JVD. CARDIOVASCULAR: Regular rate and rhythm. No murmur appreciated. Heart rate 150. Truly difficult to determine if this is regular or a irregular as it is so rapid. RESPIRATORY: No accessory muscle use. Clear to auscultation. Breath sounds equal bilaterally. GASTROINTESTINAL: Abdomen soft, non-tender, nondistended. Hepatic and splenic margins not palpable. MUSCULOSKELETAL: No obvious deformities. No clubbing. No cyanosis. No edema. NEUROLOGICAL: Awake and alert. No obvious cranial nerve deficits. Motor grossly within normal limits. Normal speech. PSYCHIATRIC: Appropriate mood and affect; insight and judgment normal. Data Data Last Documented VS Vital Signs Date Time Temp Pulse Resp B/P (MAP) Pulse Ox O2 Delivery O2 Flow Rate FiO2 10/26/17 12:31 82 18 115/70 (85) 97 Room Air Orders Orders Diltiazem Inj (Cardizem Inj) (10/26/17 11:00) Iv Access Insert/Monitor (10/26/17 10:56) Buffer Inflated Pad / Telemetry DARBY.Q8H (10/26/17 10:56) Electrocardiogram (10/26/17 ) Complete Blood Count With Diff (10/26/17 10:56) Basic Metabolic Panel (Bmp) (10/26/17 10:56) Thyroid Stimulating Hormone (10/26/17 10:56) Troponin I (10/26/17 10:59) Ckmb (Isoenzyme) Profile (10/26/17 10:59) Prothrombin Time / Inr (Pt) (10/26/17 10:59) Act Partial Throm Time (Ptt) (10/26/17 10:59) CKMB (10/26/17 10:50) CKMB% (10/26/17 10:50) Ed Discharge Order (10/26/17 14:40) Labs Laboratory Tests Test 10/26/17 10:50 White Blood Count 9.3 TH/MM3 Red Blood Count 3.46 MIL/MM3 Hemoglobin 10.7 GM/DL Hematocrit 32.1 % Mean Corpuscular Volume 92.9 FL Mean Corpuscular Hemoglobin 31.1 PG Mean Corpuscular Hemoglobin Concent 33.4 % Red Cell Distribution Width 13.2 % Platelet Count 366 TH/MM3 Mean Platelet Volume 7.5 FL Neutrophils (%) (Auto) 76.2 % Lymphocytes (%) (Auto) 13.8 % Monocytes (%) (Auto) 6.8 % Eosinophils (%) (Auto) 2.4 % Basophils (%) (Auto) 0.8 % Neutrophils # (Auto) 7.1 TH/MM3 Lymphocytes # (Auto) 1.3 TH/MM3 Monocytes # (Auto) 0.6 TH/MM3 Eosinophils # (Auto) 0.2 TH/MM3 Basophils # (Auto) 0.1 TH/MM3 CBC Comment DIFF FINAL Differential Comment Prothrombin Time 10.6 SEC Prothromb Time International Ratio 1.0 RATIO Activated Partial Thromboplast Time 24.3 SEC Blood Urea Nitrogen 14 MG/DL Creatinine 0.97 MG/DL Random Glucose 114 MG/DL Calcium Level 8.4 MG/DL Sodium Level 140 MEQ/L Potassium Level 4.1 MEQ/L Chloride Level 107 MEQ/L Carbon Dioxide Level 24.9 MEQ/L Anion Gap 8 MEQ/L Estimat Glomerular Filtration Rate 79 ML/MIN Total Creatine Kinase 821 U/L Creatine Kinase MB 1.5 NG/ML Creatine Kinase MB % 0.2 % Troponin I 0.08 NG/ML Thyroid Stimulating Hormone 3rd Gen 0.398 uIU/ML MDM Medical Decision Making Medical Screen Exam Complete: Yes Emergency Medical Condition: Yes Medical Record Reviewed: Yes Differential Diagnosis A. fib with RVR, SVT, ventricular tachycardia, sinus tachycardia Narrative Course I have reviewed the patient's electronic medical record. I reviewed his May 2015 catheterization report 1105: I evaluated the patient. I reviewed his EKG which suggests atrial flutter I'm giving him 20 g IV Cardizem to attempt to get rate control Labs sent 12:30: Labs are reviewed Troponin I is 0.8 but in the setting of tachycardia and no chest pain this does not represent ACS Clinically feeling well 1330: Heart rate remains decent at this point. He is in A. fib but rate is around 80 1430: I discussed with his lace roller operator Dr. Gaytan . Patient is currently on aspirin and we discussed switching to more formal blood thinner to decrease stroke risk. I do not see any obvious contraindications. He recommends Xarelto 20 mg daily and he will follow-up with the patient and day or 2. Patient will stop the aspirin Diagnosis Primary Impression: New onset a-fib Additional Impressions: Atrial fibrillation with RVR Status post total hip replacement, right Med/Other Pt SpecificInfo: Prescription(s) given Scripts Rivaroxaban (Xarelto) 20 Mg Tab 20 MG PO DAILY for Blood Clot Prevention, #20 TAB 0 Refills Prov: Erik Elizabeth MD 10/26/17 Disposition: 01 DISCHARGE HOME Condition: Stable Erik Elizabeth MD Oct 26, 2017 11:09
[2017-10-26 11:23] LABS: AUTOMATED NEUTROPHIL # 7.1 TH/MM3 (1.8-7.7); BASOPHIL # 0.1 TH/MM3 (0-0.2); BASOPHIL % 0.8 % (0.0-2.0); EOSINOPHIL # 0.2 TH/MM3 (0-0.4); EOSINOPHIL % 2.4 % (0.0-4.0); HEMATOCRIT 32.1 % (39.0-51.0); HEMOGLOBIN 10.7 GM/DL (13.0-17.0); LYMPH % 13.8 % (9.0-44.0); LYMPHOCYTE # 1.3 TH/MM3 (1.0-4.8); MEAN CELL VOLUME 92.9 FL (80.0-100.0); MEAN CORPUSCULAR HEMOGLOBIN 31.1 PG (27.0-34.0); MEAN CORPUSCULAR HGB CONC 33.4 % (32.0-36.0); MEAN PLATELET VOLUME 7.5 FL (7.0-11.0); MONO % 6.8 % (0.0-8.0); MONOCYTE # 0.6 TH/MM3 (0-0.9); NEUT % 76.2 % (16.0-70.0); PLATELET COUNT 366 TH/MM3 (150-450); RED BLOOD COUNT 3.46 MIL/MM3 (4.50-5.90); RED CELL DISTRIBUTION WIDTH 13.2 % (11.6-17.2); WHITE BLOOD COUNT 9.3 TH/MM3 (4.0-11.0)
[2017-10-26 11:31] LABS: PROTHROMBIN TIME - PATIENT 10.6 SEC (9.8-11.6)
[2017-10-26 11:38] LABS: BICARBONATE 24.9 MEQ/L (21.0-32.0); CALCIUM 8.4 MG/DL (8.5-10.1); CREATININE 0.97 MG/DL (0.60-1.30)
[2017-10-26 11:41] LABS: TROPONIN I 0.08 NG/ML (0.02-0.05)
[2017-10-26 12:12] VITALS: BP 105/78; PULSE 138; RESP 20; O2SAT 99
[2017-10-26 12:31] VITALS: BP 115/70; PULSE 82; RESP 18; O2SAT 97
[2017-10-26] MEDS ORDERED: XARE20TA PO (14:39)
--- NOTE | 2017-10-27 11:26 | EKG ---
Date Performed: 10/26/2017 Time Performed: 10:18:52 PTAGE: 62 years EKG: ATRIAL FLUTTER/TACHYCARDIA WITH RAPID VENTRICULAR RESPONSE MODERATE ST DEPRESSION ABNORMAL ECG PREVIOUS TRACING 09/30/17 When compared to the prior EKG, atrial flutter with rapid ventricular response is new. DOCTOR: Nathaly Potter Interpretating Date/Time 10/27/2017 11:24:43
== END 2017-10-26 16:36 | disposition home or self-care (01) ==
LOC: NEPE 10:12
DX: I48.91 Unspecified atrial fibrillation (principal); R94.31 Abnormal electrocardiogram [ECG] [EKG]; E78.00 Pure hypercholesterolemia, unspecified; I10 Essential (primary) hypertension; Z96.641 Presence of right artificial hip joint; Z79.82 Long term (current) use of aspirin
CPT/HCPCS: 80048; 82550; 82552; 84443; 84484; 85025; 85610; 85730; 93005; 96374

== ENCOUNTER 2017-12-09 01:29 | Inpatient (IN) | payer OTHER ==
[2017-12-09] VITALS (27 sets, daily range): BP systolic 92–140; BP diastolic 64–85; PULSE 68–125; RESP 16–20; TEMP 97.9–98.5; O2SAT 92–98
[~2017-12-09 01:29] MED LIST changes: +XARE20TA PO
[2017-12-09] MEDS ORDERED: DILTIAZEM HCL 25 MG/5 ML VIAL ONE (01:38)
--- NOTE | 2017-12-09 01:44 | PD ---
HPI Chief Complaint: Cardiac Complaint Time Seen by Provider: 01:37 Travel History International Travel<30 days: No Contact w/Intl Traveler<30days: No Traveled to known affect area: No History of Present Illness HPI 62-year-old male presents to the emergency department by private transportation for evaluation of atrial fibrillation with rapid heart rate. Patient denies shortness of breath near syncope syncope diaphoresis nausea vomiting or chest pain. Patient states symptoms have been present on and off throughout the day. Patient states he underwent ablation for atrial fibrillation 3 weeks ago. Patient's stock cutter is Dr. Gaytan locally and in [place] Dr. Jordan. Patient did contact his stock cutter and was encouraged to take an additional dose of medication for his symptoms and to go to the hospital if his heart rate was greater than 120 bpm. Patient states earlier today his symptoms seem to resolve and so he did not pursue evaluation in the emergency department but then returned this evening and have been persistent. Patient denies any known history of coronary vessel disease or CHF. No report of pleuritic chest pain. No lower extremity pain or swelling. PFSH Past Medical History Hx Anticoagulant Therapy: Yes (asa) Cancer: No Cardiovascular Problems: Yes (CHEST PAIN) High Cholesterol: Yes Diabetes: No Diminished Hearing: No Endocrine: No Gastrointestinal Disorders: Yes Glaucoma: No Genitourinary: Yes (ENLARGED PROSTATE) Hepatitis: No Hiatal Hernia: No Hypertension: Yes Immune Disorder: No Musculoskeletal: Yes (OA in the hip) Neurologic: No Psychiatric: No Reproductive: No Respiratory: Yes (DEVIATED SEPTUM) Thyroid Disease: No Past Surgical History Abdominal Surgery: No AICD: No Cardiac Surgery: Yes (CARDIAC CATH) Ear Surgery: No Endocrine Surgery: No Eye Surgery: No Genitourinary Surgery: No Gynecologic Surgery: No Joint Replacement: No Oral Surgery: No Pacemaker: No Thoracic Surgery: No Other Surgery: Yes (SEPTOPLASTY) Social History Alcohol Use: Yes Tobacco Use: No Substance Use: No Allergies-Medications (Allergen,Severity, Reaction): Coded Allergies: No Known Allergies (Unverified Allergy, Unknown, 12/09/17) Reported Meds & Prescriptions Reported Meds & Active Scripts Active Xarelto (Rivaroxaban) 20 Mg Tab 20 Mg PO DAILY Hydrocodone-Acetamin 7.5-325 (Hydrocodone/Acetaminophen) 7.5 Mg-325 Mg Tablet 1 Tab PO Q4H PRN Reported Livalo (Pitavastatin) 2 Mg Tab 2 Mg PO DAILY Ambien (Zolpidem Tartrate) 10 Mg Tab 10 Mg PO HS PRN Metoprolol Tartrate 25 Mg Tab 25 Mg PO BID Multi-Vitamin Daily (Multiple Vitamin) 1 Tab Tab 1 Tab PO DAILY Tamsulosin (Tamsulosin HCl) 0.4 Mg Cap 0.4 Mg PO HS Finasteride 5 Mg Tab 5 Mg PO DAILY Do not crush. Physical Exam Narrative GENERAL: Well-developed well-nourished male no acute distress no respiratory SKIN: Warm and dry. HEAD: Normocephalic. EYES: No scleral icterus. No injection or drainage. NECK: Supple, trachea midline. No JVD or lymphadenopathy. CARDIOVASCULAR: Increased irregular irregular rate and rhythm without murmurs, gallops, or rubs. RESPIRATORY: Breath sounds equal bilaterally. No accessory muscle use. GASTROINTESTINAL: Abdomen soft, non-tender, nondistended. MUSCULOSKELETAL: No cyanosis, or edema. BACK: Nontender without obvious deformity. No CVA tenderness. Data Data Last Documented VS Vital Signs Date Time Temp Pulse Resp B/P (MAP) Pulse Ox O2 Delivery O2 Flow Rate FiO2 12/09/17 02:35 94 20 93/64 (74) 98 Orders Orders Diltiazem Inj (Cardizem Inj) (12/09/17 01:38) Ecg Monitoring (12/09/17 01:37) Blood Pressure (12/09/17 01:37) Iv Access Insert/Monitor (12/09/17 01:37) Oximetry (12/09/17 01:37) Vital Signs (12/09/17 01:37) Sodium Chloride 0.9% Flush (Ns Flush) (12/09/17 01:45) Complete Blood Count With Diff (12/09/17 01:37) Basic Metabolic Panel (Bmp) (12/09/17 01:37) Magnesium (Mg) (12/09/17 01:37) Chest, Single Ap (12/09/17 ) Diltiazem Inj (Cardizem Inj) (12/09/17 01:45) Diltiazem Inj (Cardizem Inj) (12/09/17 01:45) Sodium Chloride 0.9% Flush (Ns Flush) (12/09/17 01:45) Sodium Chlor 0.9% 1000 Ml Inj (Ns 1000 M (12/09/17 01:45) Troponin I (12/09/17 01:42) Electrocardiogram (12/09/17 ) Admit Order (Ed Use Only) (12/09/17 ) Warehouse Administrative Assistant / Telemetry DARBY.Q8H (12/09/17 02:59) Activity Bed Rest (12/09/17 02:59) Notify Dr: Other (12/09/17 02:59) Consult Cardiology (12/09/17 ) Admit To Inpatient (12/09/17 ) Vital Signs (Adult) Q4H (12/09/17 02:56) Activity Bed Rest With Brp (12/09/17 ) Warehouse Administrative Assistant / Telemetry DARBY.Q8H (12/09/17 02:56) Sodium Chloride 0.9% Flush (Ns Flush) (12/09/17 09:00) Sodium Chloride 0.9% Flush (Ns Flush) (12/09/17 03:00) Creatine Kinase (Cpk) (12/09/17 08:00) Creatine Kinase (Cpk) (12/09/17 14:00) Troponin I (12/09/17 08:00) Troponin I (12/09/17 14:00) Electrocardiogram (12/09/17 08:00) Inpatient Certification (12/09/17 ) Finasteride (Proscar) (12/09/17 09:00) Metoprolol Tartrate (Lopressor) (12/09/17 09:00) Tamsulosin (Flomax) (12/09/17 21:00) Pravastatin (Pravachol) (12/09/17 09:00) Labs Laboratory Tests Test 12/09/17 01:42 White Blood Count 11.1 TH/MM3 Red Blood Count 4.34 MIL/MM3 Hemoglobin 12.8 GM/DL Hematocrit 38.4 % Mean Corpuscular Volume 88.6 FL Mean Corpuscular Hemoglobin 29.6 PG Mean Corpuscular Hemoglobin Concent 33.4 % Red Cell Distribution Width 13.1 % Platelet Count 243 TH/MM3 Mean Platelet Volume 8.5 FL Neutrophils (%) (Auto) 65.4 % Lymphocytes (%) (Auto) 26.1 % Monocytes (%) (Auto) 5.2 % Eosinophils (%) (Auto) 2.3 % Basophils (%) (Auto) 1.0 % Neutrophils # (Auto) 7.2 TH/MM3 Lymphocytes # (Auto) 2.9 TH/MM3 Monocytes # (Auto) 0.6 TH/MM3 Eosinophils # (Auto) 0.3 TH/MM3 Basophils # (Auto) 0.1 TH/MM3 CBC Comment DIFF FINAL Differential Comment Blood Urea Nitrogen 22 MG/DL Creatinine 1.20 MG/DL Random Glucose 127 MG/DL Calcium Level 8.4 MG/DL Magnesium Level 2.3 MG/DL Sodium Level 139 MEQ/L Potassium Level 4.0 MEQ/L Chloride Level 107 MEQ/L Carbon Dioxide Level 27.0 MEQ/L Anion Gap 5 MEQ/L Estimat Glomerular Filtration Rate 62 ML/MIN Troponin I 0.14 NG/ML MDM Medical Decision Making Medical Screen Exam Complete: Yes Emergency Medical Condition: Yes Medical Record Reviewed: Yes Interpretation(s) EKG: Atrial fibrillation with RVR rate 158 with intermittent atrial flutter questionable less than 1 mm elevation inferiorly and aVF without reciprocal ST depression EKG #2 after Cardizem 25 mg IV: Atrial flutter rate 94 with less than [address] elevation 3 and aVF without reciprocal ST depression EKG #3: Last Impressions Chest X-Ray 12/09/17 0000 Signed Impressions: Service Date/Time: Saturday, December 09, 2017 01:44 - CONCLUSION: Minimal left base parenchymal opacity. Laurent Haynes MD CBC & BMP Diagram 12/09/17 01:42 Calcium Level 8.4 L, Magnesium Level 2.3 Vital Signs Date Time Temp Pulse Resp B/P (MAP) Pulse Ox O2 Delivery O2 Flow Rate FiO2 12/09/17 02:27 92 20 92/65 (74) 94 12/09/17 02:15 92 20 92/65 (74) 92 12/09/17 02:15 92 20 104/69 (81) 96 12/09/17 02:15 92 20 92 12/09/17 02:15 92 20 104/69 (81) 96 12/09/17 02:14 92 104/69 troponin I: 0.14, elevated Differential Diagnosis Arrhythmia, electrolyte disturbance, ACS, PR, anemia, thyroid dysfunction, PE Narrative Course Patient placed on playground monitor with continuous pulse oximetry IV access obtained specimens collected and sent for resulting patient administered weight- based diltiazem and initiated diltiazem infusion with bolus of normal saline Patient takes Xarelto and denies any chest pain or shortness of breath sweats near syncope syncope or referred neck jaw back shoulder arm pain. Patient resting comfortably waiting on lab results voicing no concerns or complaints weight has been controlled with diltiazem Troponin I is elevated at 0.14; patient is aware of elevation of troponin patient's case discussed with on-call cardiology covering for his stock cutter recommends transfer to [facility] to [facility]; patient's case discussed with [facility] MD Physician Communication Physician Communication call placed to Dr Gaytan ---discussed with Dr Gomez --admit to medicine for serial enzymes consult to Dr Gaytan; call placed to [facility] service Diagnosis Primary Impression: Atrial fibrillation with RVR Additional Impression: Elevated troponin Admitting Information Admitting Physician Requests: Admit Tanvi Almaguer MD Dec 09, 2017 01:44
[2017-12-09] MEDS ORDERED: DILTIAZEM INJ 125 MG in SODIUM CHLORIDE 0.9% INJ 100 ML IV PRN (01:45)
[2017-12-09] MEDS ORDERED: DILTIAZEM HCL 25 MG/5 ML VIAL IV PUSH ONE (01:45)
[2017-12-09] MEDS: SODIUM CHLOR 0.9% 1000 ML INJ 1,000 ML IV SCH ×2 (01:45→02:45)
[2017-12-09] MEDS ORDERED: SODIUM CHLORIDE 0.9% FLUSH 10 ML FLUSH IV FLUSH PRN ×3 (01:45→03:00)
[2017-12-09 01:48] LABS: AUTOMATED NEUTROPHIL # 7.2 TH/MM3 (1.8-7.7); BASOPHIL # 0.1 TH/MM3 (0-0.2); EOSINOPHIL # 0.3 TH/MM3 (0-0.4); EOSINOPHIL % 2.3 % (0.0-4.0); HEMATOCRIT 38.4 % (39.0-51.0); HEMOGLOBIN 12.8 GM/DL (13.0-17.0); LYMPH % 26.1 % (9.0-44.0); LYMPHOCYTE # 2.9 TH/MM3 (1.0-4.8); MEAN CELL VOLUME 88.6 FL (80.0-100.0); MEAN CORPUSCULAR HEMOGLOBIN 29.6 PG (27.0-34.0); MEAN CORPUSCULAR HGB CONC 33.4 % (32.0-36.0); MEAN PLATELET VOLUME 8.5 FL (7.0-11.0); MONO % 5.2 % (0.0-8.0); MONOCYTE # 0.6 TH/MM3 (0-0.9); NEUT % 65.4 % (16.0-70.0); PLATELET COUNT 243 TH/MM3 (150-450); RED BLOOD COUNT 4.34 MIL/MM3 (4.50-5.90); RED CELL DISTRIBUTION WIDTH 13.1 % (11.6-17.2); WHITE BLOOD COUNT 11.1 TH/MM3 (4.0-11.0)
[2017-12-09 01:57] LABS: CALCIUM 8.4 MG/DL (8.5-10.1)
[2017-12-09 01:58] LABS: MAGNESIUM 2.3 MG/DL (1.5-2.5)
[2017-12-09 02:01] LABS: CREATININE 1.2 MG/DL (0.60-1.30)
--- NOTE | 2017-12-09 02:24 | RADRPT ---
EXAM DATE/TIME: 12/09/2017 01:44 [facility] COMPARISON: No previous studies available for comparison. INDICATIONS : Irregular heart rate for 3 hours MEDICAL HISTORY : A-fib SURGICAL HISTORY : Cardiac ablation ENCOUNTER: Initial ACUITY: 1 day PAIN SCORE: 0/10 LOCATION: Bilateral chest FINDINGS: There is slight atelectasis or infiltrate in the left lung base. Right lung is clear. No effusion humberto pected. Cardiac contours and pulmonary vascular is satisfactory. CONCLUSION: Minimal left base parenchymal opacity. Laurent Haynes MD on December 09, 2017 at 2:21 Board Certified Radiologist. This report was verified electronically.
[2017-12-09 02:30] LABS: TROPONIN I 0.14 NG/ML (0.02-0.05)
[2017-12-09] MEDS ORDERED: SODIUM CHLOR 0.9% 1000 ML INJ 1,000 ML IV ONE (03:45)
[2017-12-09 08:08] LABS: TROPONIN I 0.14 NG/ML (0.02-0.05)
[2017-12-09] MEDS: SODIUM CHLORIDE 0.9% FLUSH 10 ML FLUSH IV FLUSH SCH ×2 (09:00→21:06)
--- NOTE | 2017-12-09 10:29 | PD.CONS ---
HPI Service Cardiology-covering for Dr. Gaytan Consult Requested By Dr. Almaguer Reason for Consult Afib RVR Elevated troponin Primary Care Physician Amol Muniz MD History of Present Illness Pleasant 62 year old male known to Dr. Gaytan with a cardiac history of Atrial fibrillation status post ablation with Dr. Jordan approximately 3 weeks ago, CAD with heart cath 05/2015 showing 40% stenosis in OM-2, RCA 20% in mid portion, angina and HTN. He reports that he has not felt right for the past 3 days. He has noticed that his HR jumps up with minimal exertion. He reports that at home he has been monitoring his HR with a home EKG machine (Cardia) and has noticed his HR has been going up to 120. Yesterday after climbing stairs his HR went into the 160's, he became very dizzy and felt like he was going to pass out. He states that when his HR goes up he develops heartburn like symptoms. He tried to go to bed last night but did not feel right and decided to come to ER for further evaluation. He was given Cardizem 25 mg IV in the ER, and is currently on cardizem drip. Troponin is 0.14. Patient was transferred from [facility] with a plan for heart cath this AM, however his last dose of Xarelto was last night. He is currently resting in bed comfortably, HR is controlled, he denies any chest pain, SOB or dizziness. (Shadeed,Argelia MCNEAL) Review of Systems Consitutional: DENIES: Fatigue, Fever, Chills, Weight gain, Weight loss Eyes: DENIES: Amaurosis Fugax, Change in vision HEENT: COMPLAINS OF: Lightheadedness (when HR is elevated) Respiratory: DENIES: See HPI, Cough, Snoring, Shortness of breath, Wheezing, Sputum production Cardiovascular: COMPLAINS OF: Palpitations Gastrointestinal: DENIES: Nausea, Vomiting, Change in bowel habits, Reflux, Bloody stools, Melena Genitourinary: DENIES: Urinary incontinence, Difficulty voiding Integumentary: DENIES: Rash Neurologic: DENIES: Tingling or numbness, Memory problems, Poor Balance, Stroke symptoms Musculoskeletal: DENIES: Joint pain, Muscle pain, Limited range of motion, Back pain Psychiatric: DENIES: Anxiety, Depression, Sleep disturbances Endocrine: DENIES: Weight gain, Weight loss, Thyroid disease (MamadouArgelia Micki MCNEAL) Past Family Social History Allergies: Coded Allergies: No Known Allergies (Unverified Allergy, Unknown, 12/09/17) Past Medical History Atrial fibrillation-status post ablation Chest pain Right hip pain Hypogonadism Hypertension Hyperlipidemia Past Surgical History Status post atrial fibrillation ablation 10/2017 Cardai catheterization showing 40% stenosis in OM-2, RCA 20% in mid portion Right total hip surgery 10/18/2017 Reported Medications Reported Meds & Active Scripts Active Xarelto (Rivaroxaban) 20 Mg Tab 20 Mg PO DAILY Hydrocodone-Acetamin 7.5-325 (Hydrocodone/Acetaminophen) 7.5 Mg-325 Mg Tablet 1 Tab PO Q4H PRN Reported Livalo (Pitavastatin) 2 Mg Tab 2 Mg PO DAILY Ambien (Zolpidem Tartrate) 10 Mg Tab 10 Mg PO HS PRN Metoprolol Tartrate 25 Mg Tab 25 Mg PO BID Multi-Vitamin Daily (Multiple Vitamin) 1 Tab Tab 1 Tab PO DAILY Tamsulosin (Tamsulosin HCl) 0.4 Mg Cap 0.4 Mg PO HS Finasteride 5 Mg Tab 5 Mg PO DAILY Do not crush. Active Ordered Medications Current Medications Medications (Trade) Dose Ordered Sig/Aparna Route Start Time Stop Time Status Last Admin Diltiazem HCl 125 mg/Sodium Chloride 125 ml @ 5 mls/hr TITRATE PRN IV 12/09/17 01:45 12/09/17 02:14 Sodium Chloride 1,000 ml @ 100 mls/hr Q10H IV 12/09/17 01:45 12/09/17 02:45 (NS Flush) 2 ml BID IV FLUSH 12/09/17 09:00 (NS Flush) 2 ml UNSCH PRN IV FLUSH 12/09/17 03:00 (Proscar) 5 mg DAILY PO 12/09/17 09:00 (Lopressor) 25 mg BID PO 12/09/17 09:00 (Flomax) 0.4 mg HS PO 12/09/17 21:00 (Pravachol) 40 mg DAILY PO 12/09/17 09:00 Social History Non smoker Denies ETOH use (MamadouArgelia Micki MCNEAL) Physical Exam Vital Signs Vital Signs Date Time Temp Pulse Resp B/P (MAP) Pulse Ox O2 Delivery O2 Flow Rate FiO2 12/09/17 08:52 98.3 91 16 131/85 (100) 12/09/17 08:10 12/09/17 08:07 92 119/79 12/09/17 07:50 92 18 119/79 (92) 97 Room Air 12/09/17 07:35 92 18 100/68 (79) 97 Room Air 12/09/17 07:20 90 18 109/76 (87) 95 Room Air 12/09/17 07:06 93 18 98 Room Air 12/09/17 07:05 97.9 93 18 112/76 (88) 98 Room Air 12/09/17 06:50 92 20 115/74 (88) 98 Room Air 12/09/17 06:20 91 20 96/67 (77) 97 12/09/17 06:05 92 20 118/83 (95) 98 12/09/17 05:39 90 18 107/70 (82) 97 12/09/17 05:05 92 20 97/71 (80) 98 12/09/17 04:35 88 20 107/70 (82) Nasal Cannula 2.00 12/09/17 04:05 92 20 107/70 (82) 98 2.00 12/09/17 03:35 88 20 102/72 (82) 98 12/09/17 03:05 92 20 97/69 (78) 95 Nasal Cannula 2.00 12/09/17 02:35 94 20 93/64 (74) 98 12/09/17 02:27 92 20 92/65 (74) 94 12/09/17 02:15 92 20 92/65 (74) 92 12/09/17 02:15 92 20 104/69 (81) 96 12/09/17 02:15 92 20 92 12/09/17 02:15 92 20 104/69 (81) 96 12/09/17 02:14 92 104/69 Physical Exam GENERAL: Pleasant, overweight, middle aged male. Resting comfortably in bed. SKIN: Warm and dry. HEAD: Atraumatic. Normocephalic. EYES: No injection or drainage. ENT: No nasal bleeding or discharge. Mucous membranes pink and moist. NECK: Trachea midline. No JVD. CARDIOVASCULAR: Tachycardia, regular RESPIRATORY: No accessory muscle use. Clear to auscultation. Breath sounds equal bilaterally. GASTROINTESTINAL: Obese, Abdomen soft, non-tender, nondistended. Hepatic and splenic margins not palpable. MUSCULOSKELETAL: Extremities without clubbing, cyanosis, or edema. No obvious deformities. NEUROLOGICAL: Awake and alert. No obvious cranial nerve deficits. Motor grossly within normal limits. Five out of 5 muscle strength in the arms and legs. Normal speech. PSYCHIATRIC: Appropriate mood and affect; insight and judgment normal. Laboratory Laboratory Tests Test 12/09/17 01:42 12/09/17 07:43 White Blood Count 11.1 Red Blood Count 4.34 Hemoglobin 12.8 Hematocrit 38.4 Mean Corpuscular Volume 88.6 Mean Corpuscular Hemoglobin 29.6 Mean Corpuscular Hemoglobin Concent 33.4 Red Cell Distribution Width 13.1 Platelet Count 243 Mean Platelet Volume 8.5 Neutrophils (%) (Auto) 65.4 Lymphocytes (%) (Auto) 26.1 Monocytes (%) (Auto) 5.2 Eosinophils (%) (Auto) 2.3 Basophils (%) (Auto) 1.0 Neutrophils # (Auto) 7.2 Lymphocytes # (Auto) 2.9 Monocytes # (Auto) 0.6 Eosinophils # (Auto) 0.3 Basophils # (Auto) 0.1 CBC Comment DIFF FINAL Differential Comment Blood Urea Nitrogen 22 Creatinine 1.20 Random Glucose 127 Calcium Level 8.4 Magnesium Level 2.3 Sodium Level 139 Potassium Level 4.0 Chloride Level 107 Carbon Dioxide Level 27.0 Anion Gap 5 Estimat Glomerular Filtration Rate 62 Troponin I 0.14 0.14 Total Creatine Kinase 51 (Argelia Cedillo) Result Diagram: 12/09/17 0142 12/09/17 0142 Imaging Last 72 hours Impressions Chest X-Ray 12/09/17 0000 Signed Impressions: Service Date/Time: Saturday, December 09, 2017 01:44 - CONCLUSION: Minimal left base parenchymal opacity. Laurent Haynes MD (Argelia CedilloP) Assessment and Plan Assessment and Plan NSTEMI - troponin 0.14 Atrial fibrillation with RVR HTN Plan -Unable to do heart catheterization today due to patient taking Xarelto last night. He is resting comfortably, denies chest pain or SOB. Will plan to observe over the weekend, with plan for possible heart cath Tuesday with Dr. Gaytan. Will give last dose of Xarelto Tuesday PM 12/10, and hold NPO after midnight on Monday 12/11 -HR is controlled on cardizem drip. Will plan to resume home medications, Metoprolol 25mg PO BID, and Multaq 400mg PO BID. Will Start Cardizem 240mg PO daily, and DC cardizem drip. -BP is controlled The patient was seen and evaluated by Dr. Potter who completed face to face encounter and physical exam and participated in evaluation and management. Code Status Full Discussed Condition With Discussed condition and orders with Fabi BAILON. (Argelia Cedillo) Assessment and Plan The exam, history, and the medical decision-making described in the above note were completed with the assistance of the mid-level provider. I reviewed and agree with the findings presented. I attest that I had a [id number] encounter with the patient on the same day, and personally performed and documented my assessment and findings in the medical record. NSTEMI with positive troponin . Has moderate stenosis lat cath in Circumflex. (Nathaly Potter MD) Argelia Cedillo Dec 09, 2017 10:29 Nathaly Potter MD Dec 09, 2017 15:01
[2017-12-09] MEDS: FINASTERIDE 5 MG TAB PO SCH (10:45)
[2017-12-09] MEDS: PRAVASTATIN SOD 40 MG TAB PO SCH (10:45)
[2017-12-09] MEDS: METOPROLOL TARTRATE 25 MG TAB PO SCH ×2 (10:45→21:06)
--- NOTE | 2017-12-09 10:57 | HHI.HP ---
[facility] Primary Care Physician Amol Muniz MD Admission Diagnosis AFRVR/atrial flutter; elevated troponinI Diagnoses: Chief Complaint: dizziness Travel History International Travel<30 Days: No Contact w/Intl Traveler <30 Da: No Traveled to Known Affected Are: No History of Present Illness patient is a 62 years old male with history of a fib s/p ablation last 2017, VAD last evening developed palpitations associated with some chest pressure- took his heart rate0- noted to be around 180s. sent here and admitted Plan was to do cath today- however- took Xarelto last evening and cancelled. Physical activity mainly limited by right hip pain- chronic patient currently in SR - denies any chest pain or shortness of breath Review of Systems Constitutional: DENIES: Diaphoretic episodes, Fatigue, Fever, Weight gain, Weight loss, Chills, Dizziness, Change in appetite, Night Sweats Endocrine: DENIES: Heat/cold intolerance, Polydipsia, Polyuria, Polyphagia Eyes: DENIES: Blurred vision, Diplopia, Eye inflammation, Eye pain, Vision loss , Photosensitivity, Double Vision Ears, nose, mouth, throat: DENIES: Tinnitus, Hearing loss, Vertigo, Nasal discharge, Oral lesions, Throat pain, Hoarseness, Ear Pain, Running Nose, Epistaxis, Sinus Pain, Toothache, Odynophagia Respiratory: DENIES: Apneas, Cough, Snoring, Wheezing, Hemoptysis, Sputum production, Shortness of breath Cardiovascular: COMPLAINS OF: Palpitations Gastrointestinal: DENIES: Abdominal pain, Black stools, Bloody stools, Constipation, Diarrhea, Nausea, Vomiting, Difficulty Swallowing, Anorexia Genitourinary: DENIES: Sexual dysfunction, Urinary frequency, Urinary incontinence, Urgency, Hematuria, Dysuria, Nocturia, Penile Discharge, Testicular Pain, Testicular Swelling Musculoskeletal: DENIES: Joint pain, Muscle aches, Stiffness, Joint Swelling, Back pain, Neck pain Integumentary: DENIES: Abnormal pigmentation, Nail changes, Pruritus, Rash Hematologic/lymphatic: DENIES: Bruising, Lymphadenopathy Immunologic/allergic: DENIES: Eczema, Urticaria Neurologic: DENIES: Abnormal gait, Headache, Localized weakness, Paresthesias, Seizures, Speech Problems, Tremor, Poor Balance Psychiatric: DENIES: Anxiety, Confusion, Mood changes, Depression, Hallucinations, Agitation, Suicidal Ideation, Homicidal Ideation, Delusions Past Family Social History Past Medical History a trial fibrillation s.p ablation hyperlipiedmiea BPH denies any hsitory of CAD Past Surgical History right hip surgery 2018 Reported Medications xarelto, Lortab 7.5, Livedo, Metoprolol, Flomax, finasteride Allergies: Coded Allergies: No Known Allergies (Unverified Allergy, Unknown, 12/09/17) Family History fatehr of GA at 76 years old History of ESRD secondary to RCC Social History non smoker, occasional wine, no history of IVDU Physical Exam Vital Signs Vital Signs Date Time Temp Pulse Resp B/P (MAP) Pulse Ox O2 Delivery O2 Flow Rate FiO2 12/09/17 08:52 98.3 91 16 131/85 (100) 12/09/17 08:10 12/09/17 08:07 92 119/79 12/09/17 07:50 92 18 119/79 (92) 97 Room Air 12/09/17 07:35 92 18 100/68 (79) 97 Room Air 12/09/17 07:20 90 18 109/76 (87) 95 Room Air 12/09/17 07:06 93 18 98 Room Air 12/09/17 07:05 97.9 93 18 112/76 (88) 98 Room Air 12/09/17 06:50 92 20 115/74 (88) 98 Room Air 12/09/17 06:20 91 20 96/67 (77) 97 12/09/17 06:05 92 20 118/83 (95) 98 12/09/17 05:39 90 18 107/70 (82) 97 12/09/17 05:05 92 20 97/71 (80) 98 12/09/17 04:35 88 20 107/70 (82) Nasal Cannula 2.00 12/09/17 04:05 92 20 107/70 (82) 98 2.00 12/09/17 03:35 88 20 102/72 (82) 98 12/09/17 03:05 92 20 97/69 (78) 95 Nasal Cannula 2.00 12/09/17 02:35 94 20 93/64 (74) 98 12/09/17 02:27 92 20 92/65 (74) 94 12/09/17 02:15 92 20 92/65 (74) 92 12/09/17 02:15 92 20 104/69 (81) 96 12/09/17 02:15 92 20 92 12/09/17 02:15 92 20 104/69 (81) 96 12/09/17 02:14 92 104/69 Physical Exam GENERAL: This is a well-nourished, well-developed patient, in no apparent distress. SKIN: No rashes, ecchymoses or lesions. Cool and dry. HEAD: Atraumatic. Normocephalic. No temporal or scalp tenderness. EYES: Pupils equal round and reactive. Extraocular motions intact. No scleral icterus. No injection or drainage. ENT: Nose without bleeding, purulent drainage or septal hematoma. Throat without erythema, tonsillar hypertrophy or exudate. Uvula midline. Airway patent. NECK: Trachea midline. No JVD or lymphadenopathy. Supple, nontender, no meningeal signs. CARDIOVASCULAR: Regular rate and rhythm without murmurs, gallops, or rubs. RESPIRATORY: Clear to auscultation. Breath sounds equal bilaterally. No wheezes , rales, or rhonchi. GASTROINTESTINAL: Abdomen soft, non-tender, nondistended. No guarding. MUSCULOSKELETAL: Extremities without clubbing, cyanosis, or edema. No joint tenderness, effusion, or edema noted. No calf tenderness. Negative Homans sign bilaterally. NEUROLOGICAL: Awake and alert. Cranial nerves II through XII intact. Motor and sensory grossly within normal limits. Five out of 5 muscle strength in all muscle groups. Normal speech. Laboratory Laboratory Tests Test 12/09/17 01:42 12/09/17 07:43 White Blood Count 11.1 Red Blood Count 4.34 Hemoglobin 12.8 Hematocrit 38.4 Mean Corpuscular Volume 88.6 Mean Corpuscular Hemoglobin 29.6 Mean Corpuscular Hemoglobin Concent 33.4 Red Cell Distribution Width 13.1 Platelet Count 243 Mean Platelet Volume 8.5 Neutrophils (%) (Auto) 65.4 Lymphocytes (%) (Auto) 26.1 Monocytes (%) (Auto) 5.2 Eosinophils (%) (Auto) 2.3 Basophils (%) (Auto) 1.0 Neutrophils # (Auto) 7.2 Lymphocytes # (Auto) 2.9 Monocytes # (Auto) 0.6 Eosinophils # (Auto) 0.3 Basophils # (Auto) 0.1 CBC Comment DIFF FINAL Differential Comment Blood Urea Nitrogen 22 Creatinine 1.20 Random Glucose 127 Calcium Level 8.4 Magnesium Level 2.3 Sodium Level 139 Potassium Level 4.0 Chloride Level 107 Carbon Dioxide Level 27.0 Anion Gap 5 Estimat Glomerular Filtration Rate 62 Troponin I 0.14 0.14 Total Creatine Kinase 51 Result Diagram: 12/09/17 0142 12/09/17 0142 Imaging Last Impressions Chest X-Ray 12/09/17 0000 Signed Impressions: Service Date/Time: Saturday, December 09, 2017 01:44 - CONCLUSION: Minimal left base parenchymal opacity. MD Gina Branch VTE Risk Assessment Gina VTE Risk Assessment: Mod/High Risk (score >= 2) [place] Risk Assessment Model Point Value = 1 Point Value = 2 Point Value = 3 Point Value = 5 Age 41-60 Minor surgery BMI > 25 kg/m2 Swollen legs Varicose veins or History of unexplained or recurrent spontaneous Oral contraceptives or hormone replacement Sepsis (< 1 month) Serious lung disease, including pneumonia (< 1 month) Abnormal pulmonary function Acute myocardial infarction Congestive heart failure (< 1 month) History of inflammatory bowel disease Medical patient at bed rest Age 61-74 Arthroscopic surgery Major open surgery (> 45 min) Laparoscopic surgery (> 45 min) Malignancy Confined to bed (> 72 hours) Immobilizing plaster cast Central venous access Age >= 75 History of VTE Family history of VTE Factor V Leiden Prothrombin [id number] Lupus anticoagulant Anticardiolipin antibodies Elevated serum homocysteine Heparin-induced thrombocytopenia Other congenital or acquired thrombophilia Stroke (< 1 month) Elective arthroplasty Hip, pelvis, or leg fracture Acute spinal cord injury (< 1 month) Prophylaxis Regimen Total Risk Factor Score Risk Level Prophylaxis Regimen 0-1 Low Early ambulation 2 Moderate Order ONE of the following: *Sequential Compression Device (SCD) *Heparin 5000 units SQ BID 3-4 Higher Order ONE of the following medications: *Heparin 5000 units SQ TID *Enoxaparin/Lovenox 40 mg SQ daily (WT < 150 kg, CrCl > 30 mL/min) *Enoxaparin/Lovenox 30 mg SQ daily (WT < 150 kg, CrCl > 10-29 mL/min) *Enoxaparin/Lovenox 30 mg SQ BID (WT < 150 kg, CrCl > 30 mL/min) AND/OR *Sequential Compression Device (SCD) 5 or more Highest Order ONE of the following medications: *Heparin 5000 units SQ TID (Preferred with Epidurals) *Enoxaparin/Lovenox 40 mg SQ daily (WT < 150 kg, CrCl > 30 mL/min) *Enoxaparin/Lovenox 30 mg SQ daily (WT < 150 kg, CrCl > 10-29 mL/min) *Enoxaparin/Lovenox 30 mg SQ BID (WT < 150 kg, CrCl > 30 mL/min) AND *Sequential Compression Device (SCD) Assessment and Plan Assessment and Plan 62 years old male Recurrent a fib s/p hsitory of recent ablation 10/2017 - started on Multaq, Cardizxem and BB - Xarelto NSTEMI- trop .14 Hyperlipidemia - plan for cardiac cath Tuesday - statins - Cardiology ff History of BPH - continue meds BIB- gentle fluids - BMP in am Physician Certification 2 Midnight Certification Type: Admission for Inpatient Services Order for Inpatient Services The services are ordered in accordance with Medicare regulations or non- Medicare payer requirements, as applicable. In the case of services not specified as inpatient-only, they are appropriately provided as inpatient services in accordance with the 2-midnight benchmark. Estimated LOS (days): 3 days is the estimated time the patient will need to remain in the hospital, assuming treatment plan goals are met and no additional complications. Post-Hospital Plan: Home Shade Wren MD Dec 09, 2017 10:57
[2017-12-09] MEDS: DILTIAZEM-CD 240 MG CAP ER PO SCH (11:30)
[2017-12-09 16:19] LABS: TROPONIN I 0.11 NG/ML (0.02-0.05)
[2017-12-09] MEDS: RIVAROXABAN 20 MG TAB PO SCH (17:00)
[2017-12-09] MEDS: DRONEDARONE 400 MG TAB PO SCH (17:58)
[2017-12-09] MEDS: TAMSULOSIN HCL 0.4 MG CAP PO SCH (21:06)
[2017-12-10] VITALS (26 sets, daily range): BP systolic 94–119; BP diastolic 62–81; PULSE 69–111; RESP 18–20; TEMP 97.7–98.4; O2SAT 94–97
[2017-12-10] MEDS: SODIUM CHLOR 0.9% 1000 ML INJ 1,000 ML IV SCH (05:26)
[2017-12-10] MEDS: DILTIAZEM-CD 240 MG CAP ER PO SCH (08:18)
[2017-12-10] MEDS: METOPROLOL TARTRATE 25 MG TAB PO SCH (08:18)
[2017-12-10] MEDS: DRONEDARONE 400 MG TAB PO SCH ×2 (08:18→17:41)
[2017-12-10] MEDS: PRAVASTATIN SOD 40 MG TAB PO SCH (08:18)
[2017-12-10] MEDS: FINASTERIDE 5 MG TAB PO SCH (08:18)
[2017-12-10] MEDS: SODIUM CHLORIDE 0.9% FLUSH 10 ML FLUSH IV FLUSH SCH ×2 (08:19→19:37)
--- NOTE | 2017-12-10 12:42 | HHI.PR ---
Subjective Remarks up on chair- no complains telemetry in SR no chest pain or shortness of breath requesting for something for sleep- at home states uses Ambien Objective Vitals Vital Signs Date Time Temp Pulse Resp B/P (MAP) Pulse Ox O2 Delivery O2 Flow Rate FiO2 12/10/17 11:15 97.7 102 18 100/62 (75) 94 12/10/17 08:15 96 Room Air 12/10/17 08:15 97.8 102 18 114/81 (92) 96 12/10/17 07:01 101 12/10/17 06:00 101 12/10/17 05:00 80 12/10/17 04:00 98.4 69 18 109/69 (82) 96 12/10/17 04:00 69 12/10/17 04:00 Room Air 12/10/17 03:00 92 12/10/17 02:00 111 12/10/17 01:00 92 12/10/17 00:00 98.2 96 18 119/79 (92) 97 12/10/17 00:00 Room Air 12/10/17 00:00 96 12/09/17 23:00 92 12/09/17 22:00 101 12/09/17 21:00 98 12/09/17 20:00 101 12/09/17 20:00 Room Air 12/09/17 20:00 Room Air 12/09/17 20:00 98.5 101 20 112/84 (93) 97 12/09/17 15:19 98.0 74 20 140/80 (100) 96 12/09/17 15:13 74 12/09/17 12:40 68 12/09/17 12:40 98.0 68 18 136/84 (101) 96 I/O 12/09/17 12/09/17 12/09/17 12/10/17 12/10/17 12/10/17 07:00 15:00 23:00 07:00 15:00 23:00 Intake Total 2000 ml 28 ml 480 ml Output Total 1000 ml 550 ml 750 ml Balance 1000 ml -522 ml -270 ml Intake Oral 480 ml IV Total 2000 ml 28 ml Output Urine Total 1000 ml 550 ml 750 ml # Voids 1 2 # Bowel Movements 0 Result Diagram: 12/09/17 0142 12/09/17 014 Imaging Last Impressions Chest X-Ray 12/09/17 0000 Signed Impressions: Service Date/Time: Saturday, December 09, 2017 01:44 - CONCLUSION: Minimal left base parenchymal opacity. Laurent Haynes MD Objective Remarks awake and alert no acute distress anicteric lungs- no rlaes regular rhythm HR 102 abdomen soft, nontender extremities no edema A/P Assessment and Plan 62 years old male Recurrent a fib s/p history of recent ablation 10/2017- now in SR - on Multaq, Cardizem and BB - Xarelto - Cardiology NSTEMI- trop .14 Hyperlipidemia - plan for cardiac cath Tuesday - statins - Cardiology ff History of BPH - continue meds BIB- improved on gentle fluids up and ambulating; on Xarelto for above Shade Wren MD Dec 10, 2017 12:42
--- NOTE | 2017-12-10 12:50 | EKG ---
Date Performed: 12/09/2017 Time Performed: 01:44:48 PTAGE: 62 years EKG: Atrial tachycardia/atrial flutter with regular conduction PREVIOUS TRACING : 10/26/2017 10.18 DOCTOR: Bob Caraballo Interpretating Date/Time 12/10/2017 12:49:52
--- NOTE | 2017-12-10 12:50 | EKG ---
Date Performed: 12/09/2017 Time Performed: 01:35:33 PTAGE: 62 years EKG: Atrial fibrillation with rapid ventricular response Patient is no longer in 2 to 1 flutter, from the prior tracing. PREVIOUS TRACING : 10/26/2017 10.18 DOCTOR: Bob Caraballo Interpretating Date/Time 12/10/2017 12:48:56
--- NOTE | 2017-12-10 12:51 | EKG ---
Date Performed: 12/09/2017 Time Performed: 02:46:43 PTAGE: 62 years EKG: Atrial tachycardia/atrial flutter with regular conduction similar to prior tracing PREVIOUS TRACING : 12/09/2017 01.44.48 DOCTOR: Bob Caraballo Interpretating Date/Time 12/10/2017 12:50:26
--- NOTE | 2017-12-10 12:53 | EKG ---
Date Performed: 12/09/2017 Time Performed: 07:49:53 PTAGE: 62 years EKG: Atrial tachycardia or atypical atrial flutter with 2 to 1 conduction Low voltage throughout ABNORMAL ECG Since PREVIOUS TRACING , no significant change noted PREVIOUS TRACIN12/09/2017 01.44 DOCTOR: Bob Caraballo Interpretating Date/Time 12/10/2017 12:51:01
[2017-12-10] MEDS ORDERED: METOPROLOL TARTRATE 25 MG TAB PO ONE (14:00)
[2017-12-10] MEDS: RIVAROXABAN 20 MG TAB PO SCH (17:41)
[2017-12-10] MEDS: TAMSULOSIN HCL 0.4 MG CAP PO SCH (19:36)
[2017-12-10] MEDS: METOPROLOL TARTRATE 50 MG TAB PO SCH (19:36)
[2017-12-10] MEDS: ZOLPIDEM TARTRATE 10 MG TAB PO PRN (19:36)
[2017-12-11] VITALS (26 sets, daily range): BP systolic 92–115; BP diastolic 56–79; PULSE 55–92; RESP 18–20; TEMP 97.7–98.3; O2SAT 95–98
[2017-12-11] MEDS: SODIUM CHLOR 0.9% 1000 ML INJ 1,000 ML IV SCH (05:15)
[2017-12-11 07:45] LABS: BICARBONATE 25.1 MEQ/L (21.0-32.0); CALCIUM 8.3 MG/DL (8.5-10.1); CREATININE 0.92 MG/DL (0.60-1.30); MAGNESIUM 2.3 MG/DL (1.5-2.5); PHOSPHORUS 4.5 MG/DL (2.5-4.9)
[2017-12-11 07:58] LABS: FREE T4 1.23 NG/DL (0.76-1.46)
[2017-12-11] MEDS: METOPROLOL TARTRATE 50 MG TAB PO SCH ×2 (08:24→19:47)
[2017-12-11] MEDS: PRAVASTATIN SOD 40 MG TAB PO SCH (08:24)
[2017-12-11] MEDS: DRONEDARONE 400 MG TAB PO SCH ×2 (08:24→17:29)
[2017-12-11] MEDS: FINASTERIDE 5 MG TAB PO SCH (08:24)
[2017-12-11] MEDS: DILTIAZEM-CD 240 MG CAP ER PO SCH (08:24)
[2017-12-11] MEDS: SODIUM CHLORIDE 0.9% FLUSH 10 ML FLUSH IV FLUSH SCH ×2 (09:00→19:48)
--- NOTE | 2017-12-11 13:05 | HHI.PR ---
Subjective Remarks no complains looking forward to cardiac cath tomorrow Objective Vitals Vital Signs Date Time Temp Pulse Resp B/P (MAP) Pulse Ox O2 Delivery O2 Flow Rate FiO2 12/11/17 11:15 97.8 64 18 92/56 (68) 95 12/11/17 08:30 98.2 65 18 107/66 (80) 97 12/11/17 08:30 98 Room Air 12/11/17 07:01 87 12/11/17 06:00 62 12/11/17 05:00 68 12/11/17 04:00 77 12/11/17 04:00 98.0 77 18 112/64 (80) 97 12/11/17 04:00 Room Air 12/11/17 03:00 75 12/11/17 02:00 70 12/11/17 01:00 64 12/11/17 00:00 97.7 69 18 100/62 (75) 97 12/11/17 00:00 69 12/11/17 00:00 Room Air 12/10/17 23:00 72 12/10/17 22:00 70 12/10/17 21:00 77 12/10/17 20:00 97.9 69 20 101/66 (78) 96 12/10/17 20:00 69 12/10/17 20:00 Room Air 12/10/17 18:01 102 12/10/17 17:00 102 12/10/17 16:01 100 12/10/17 15:30 97.7 93 18 94/71 (79) 94 12/10/17 15:00 100 12/10/17 14:00 102 I/O 12/10/17 12/10/17 12/10/17 12/11/17 12/11/17 12/11/17 06:59 14:59 22:59 06:59 14:59 22:59 Intake Total 480 ml 1200 ml 480 ml Output Total 750 ml 1275 ml 900 ml Balance -270 ml -75 ml -420 ml Intake Oral 480 ml 1200 ml 480 ml Output Urine Total 750 ml 1275 ml 900 ml # Voids 4 # Bowel Movements 0 1 0 Result Diagram: 12/09/17 0142 12/11/17 0555 Imaging Last Impressions Chest X-Ray 12/09/17 0000 Signed Impressions: Service Date/Time: Saturday, December 09, 2017 01:44 - CONCLUSION: Minimal left base parenchymal opacity. Laurent Haynes MD Objective Remarks awake and alert no acute distress anicteric no rales no wheezes regular rhythm rate 68 abdomen soft, nontender extremities no edema A/P Assessment and Plan 62 years old male Recurrent a fib s/p history of recent ablation 10/2017-in SR - on Multaq, Cardizem and BB - Xarelto- held for cath - Cardiology NSTEMI- trop .14 Hyperlipidemia - plan for cardiac cath Tuesday - statins - Cardiology ff History of BPH - continue meds BIB- improved on gentle fluids up and ambulating on Xarelto for above Shade Wren MD Dec 11, 2017 13:05
[2017-12-11] MEDS: ZOLPIDEM TARTRATE 10 MG TAB PO PRN (19:48)
[2017-12-11] MEDS: TAMSULOSIN HCL 0.4 MG CAP PO SCH (19:48)
[2017-12-12] VITALS (22 sets, daily range): BP systolic 99–129; BP diastolic 60–80; PULSE 57–100; RESP 16–20; TEMP 97.7–98.8; O2SAT 94–98
[2017-12-12] MEDS: SODIUM CHLORIDE 0.9% FLUSH 10 ML FLUSH IV FLUSH SCH ×2 (09:00→21:00)
[2017-12-12] MEDS: PRAVASTATIN SOD 40 MG TAB PO SCH (09:37)
[2017-12-12] MEDS: METOPROLOL TARTRATE 50 MG TAB PO SCH ×2 (09:37→21:03)
[2017-12-12] MEDS: FINASTERIDE 5 MG TAB PO SCH (09:37)
[2017-12-12] MEDS: DRONEDARONE 400 MG TAB PO SCH ×2 (09:37→17:40)
[2017-12-12] MEDS: DILTIAZEM-CD 240 MG CAP ER PO SCH (09:37)
[2017-12-12] MEDS: SODIUM CHLOR 0.9% 1000 ML INJ 1,000 ML IV SCH (09:37)
[2017-12-12] MEDS ORDERED: LIDOCAINE HCL 1% PF 30 ML VIAL ONE (14:33)
[2017-12-12] MEDS ORDERED: MIDAZOLAM HCL 5 MG/5 ML VIAL ONE (14:34)
--- NOTE | 2017-12-12 16:02 | CATHPROC ---
[facility] HIS Report Study Information Study Number Admission Scheduled Start Study Start [id number] Dec 09 2017 3:02AM 12/12/2017 Dec 12 2017 2:23PM [place] [facility] Cardiac Catheterization Admit Source Facility Department Emergency department [facility] - Technology [employer] Architect Physician and Clinical Staff Initial Jony Saxena Principal Examiner Jakob RN, Azeem Principal ExaminerMarco Antonio Swenson RN Recorder Nighat Montoya,CELI TECH2 Scrub Obi Muñoz RCIS(BS) Procedures Performed Procedure Location (Site) Vessel Name Angiogram LV LV Ventricle Coronary Angiograms LCA Left Coronary Coronary Angiograms RCA Right Coronary L Heart Cath Equipment Time Medical Associate Description Size Mfg Part Number Used/Scraped TRANSDUCER, TRUWAVE [id number] 14:28 JACOBS BALTAZAR * Used W/STOCKCOCK *[id number] 15:45 CARDIGetO2 MEDICAL VASCADE, FR5 CLOSURE SYSTEM FR 5 Used *[id number] *[id number] [id number] *[id number] 15:11 MALLINCKRODT SYRINGE, ANGIOMAT 150ML 150ML *[id number] Used 2SUB [id number] 14:28 4Blox INDUSTRIES PACK, CCL CUSTOM * Used *[id number] 14:28 4Blox PACER PEN, SKIN DUAL W/ RULER * Used *[id number] PIG ANG 145 DXTERITY [id number] 14:50 MEDTRONIC FR 5 Used CATHETER *[id number] 14:28 Ziffi MEDICAL WIRE, 3MMJ .035 180CM 180CM Used *[id number] PROBE COVER, STERILE [id number] 14:28 KIP [employer]otech MEDICAL * Used ULTRASOUND W/ GEL *[id number] 14:28 NAMIC MANIFOLD, 4 PORT * Used *[id number] 14:48 NAMIC TUBING, HIGH PRESSURE 48" 48" Used *[id number] 14:28 NAMIC TUBING, HIGH PRESSURE 48" 48" Used *[id number] 14:28 NYCOMED OMNIPAQUE, 350 MG, 150ML 150ML [id number] Used 15:22 NYCOMED OMNIPAQUE, 350 MG, 50ML 50ML [id number] Used [id number] 14:28 GABRIEL MEDICAL BLANKET,WARM AIR CCL * Used *[id number] 14:28 TERUMO MEDICAL SHEATH, FR5 TERUMO (10CM) FR 5 Used *[id number] Equipment Model, Serial, Lot Number and Expiration Data Description Model Number Serial Number Lot Number Expiration Date SIDRA CAMARENA 145 DXTERITY CATHETER [id number] 02-16-2019 History: Current Medications Medication Dosage/Unit Route Frequency Last Date/Time Taken CARDIZEM XARELTO LOPRESSOR FLOMAX History: Allergies Allergy Reaction No Known Allergies History: Risk Factors Family History of Hypertension Dyslipidemia Previous GA Previous Heart Failure Premature CAD Yes Yes No No No Prior Valve Prior PCI Prior CABG Surgery No No No Cerebrovascular Peripheral Artery Chronic Lung On Dialysis Diabetes Disease Disease Disease No No No No No History: Symptoms/Diagnosis Selection Items Chest pain Palpitations History: Stress Tests Stress or Imaging Studies Performed No History: Arrhythmias Selection Items Atrial fibrillation History: Other Current Smoker No Labs Hgb (g/dl) Hct (%) WBC (l/cumm) Platelets (thousands) 11.60-17.00 35.00-51.00 4.00-11.00 150.00-450.00 12.8 38.4 11.1 243 Glucose (mg/dl) BUN (mg/dl) Creatinine (mg/dl) BUN:Creatinine (1:x) 74.00-106.00 7.00-18.00 0.50-1.30 10.00-20.00 91 13 0.9 14.4 Na (meq/l) K (meq/l) Cl (meq/l) CO2 (mmol/L) Ca (mg/dl) 136.00-145.00 3.50-5.10 98.00-107.00 21.00-32.00 8.50-10.10 139 4 108 25.1 8.3 Troponin I (ng/ml) CPK (u/l) CPK-MB (ng/ML) 0.02-0.05 26.00-308.00 0.50-3.60 0.11 56 Not Drawn Medication Medication Total Dose (Bolus/Oral) Medication Total Dosage/Unit 1% XYLOCAINE 20 mL FENTANYL 100 mcg VERSED 5 mg Medications (Bolus/Oral) Medication Time Given Dosage/Unit Administered By Reason VERSED 12/12/2017 3:06:59 PM 2 mg Marco Antonio Peterson 2 mg VERSED given in lab by Marco Antonio Peterson RN in Right Antecubital via Peripheral IV. Ordered by Jony Roberts. FENTANYL 12/12/2017 3:07:26 PM 50 mcg Nicholas, Marco Antonio 50 mcg FENTANYL given in lab by Marco Antonio Peterson RN in Right Antecubital via Peripheral IV. Ordered by Jony Moody. VERSED 12/12/2017 3:12:03 PM 1 mg Nicholas, Marco Antonio 1 mg VERSED given in lab by Marco Antonio Peterson RN in Right Antecubital via Peripheral IV. Ordered by Jony Roberts. FENTANYL 12/12/2017 3:13:01 PM 25 mcg Nicholas, Marco Antonio 25 mcg FENTANYL given in lab by Marco Antonio Peterson RN in Right Antecubital via Peripheral IV. Ordered by Jony Moody. 1% XYLOCAINE 12/12/2017 3:14:15 PM 20 mL Jony Gaytan 20 mL 1% XYLOCAINE given in lab by Jony Gaytan in Right Groin via Subcutaneous. Ordered by Jony Branham. VERSED 12/12/2017 3:20:42 PM 1 mg Nicholas, Marco Antonio 1 mg VERSED given in lab by Marco Antonio Peterson RN in Right Antecubital via Peripheral IV. Ordered by Jony Roberts. FENTANYL 12/12/2017 3:21:47 PM 25 mcg Nicholas, Marco Antonio 25 mcg FENTANYL given in lab by Marco Antonio Peterson RN in Right Antecubital via Peripheral IV. Ordered by Jony Moody. VERSED 12/12/2017 3:38:40 PM 1 mg Nicholas, Marco Antonio 1 mg VERSED given in lab by Marco Antonio Peterson RN in Right Antecubital via Peripheral IV. Ordered by Jony Roberts. Medication (Drip) Medication Time Given Dosage/Unit Concentration/Unit Diluent (ml) Solution IV Solutions 12/12/2017 2:39:36 PM 0 mL (IV) 500 NaCl .9 Patient arrived on IV Solutions given by Marco Antonio Peterson RN in Right Antecubital via Peripheral IV. Pum p/Drip Flow = 20 ml/hr using NaCl .9. Ordered by Jony Gaytan. Initial Case Assessment Cardiovascular HR Rhythm NIBP Chest Pain 98 sr 121/84 0 Circulatory - Right Pulses Dorsalis Pedis Femoral 1 1 Scale (0,1,2,3,4,d) Circulatory - Left Pulses Dorsalis Pedis Femoral 1 1 Scale (0,1,2,3,4,d) Neurological State Oriented to time-place- Alert Moves all extremities person Respiration - General Respiration Rate SpO2 (%) (B/min) 10 96 Final Case Assessment Cardiovascular HR Rhythm NIBP Chest Pain 86 afib 103/71 0 Circulatory - Right Pulses Dorsalis Pedis Femoral 1 1 Scale (0,1,2,3,4,d) Circulatory - Left Pulses Dorsalis Pedis Femoral 1 1 Scale (0,1,2,3,4,d) Neurological State Oriented to time-place- Alert Moves all extremities person Respiration - General Respiration Rate SpO2 (%) (B/min) 13 97 Chronological Log Time Study Chronological Log 14:24:24 Patient arrived via Bed. 14:24:24 Patient Name, D.O.B, / Armband Verified By R.N. 14:24:25 Consent signed by the physician and the patient and verified by the Technology Solutions Architect staff. 14:24:26 Pre-op and post- op instructions given; patient acknowledges understanding of instructions. 14:24:27 Verbal Stimulation=2 Physical Stimulation=2 Airway=2 Respiration=2 TOTAL=8. (0=absent, 1=li mited, 2=present) 14:24:30 Patient has been NPO for More than 6Hrs. 14:24:31 Skin Breakdown-none per patient 14:24:33 Jordi Prominences Protected 14:39:17 Bilateral groins prepped with 2% chlorhexidine, and draped after a 3 minute waiting time. 14:39:35 A # 20 IV was noted in the Antecubital (right). Grade = patent Patient arrived on IV Solutions given by Marco Antonio Peterson, RN in Right Antecubital via Peripheral I V. Pump/Drip Flow = 20 14:39:36 ml/hr using NaCl .9. Ordered by Jony Gaytan. 14:39:37 History and physical on the chart or being dictated. Vitals capture started with the following parameters, Patient=Adult, Interval=5 min, Initial Pr qvwiyr=805 mmHg, 14:39:43 Deflation Rate=5 mmHg, Cuff placed on Left Arm Assessment: Initial Case, HR=98 BPM, Rhythm=sr, SWRF=099/84 mmhg, Chest Pain=0 Right Pulses: Dony Ped=1, Femoral=1 14:39:50 Left Pulses: Dony Ped=1, Femoral=1 Neurological: State=Alert, Ox3, MAGALLON Respiration: Resp=10 B/min, SpO2=96 % 14:39:53 Reference ECG taken 14:40:20 HR=98 bpm, NCJP=967/84 mmhg, SpO2=96.0 %, Resp=12 B/min 14:42:49 MD paged 14:45:21 HR=97 bpm, EMHR=562/80 mmhg, SpO2=98.0 %, Resp=13 B/min 14:46:09 Pressure channel 1 zeroed. 14:50:20 HR=97 bpm, LYQB=125/84 mmhg, SpO2=97.0 %, Resp=13 B/min 14:51:36 MD responded 14:55:21 HR=97 bpm, BFYE=638/79 mmhg, SpO2=97.0 %, Resp=10 B/min 15:00:20 HR=98 bpm, XKPB=142/83 mmhg, SpO2=97.0 %, Resp=14 B/min 15:05:20 HR=98 bpm, FDLO=468/83 mmhg, SpO2=98.0 %, Resp=13 B/min 15:05:27 MD arrived. 15:06:59 2 mg VERSED given in lab by Marco Antonio Peterson RN in Right Antecubital via Peripheral IV. Ordere d by Jony Gaytan. 15:07:26 50 mcg FENTANYL given in lab by Marco Antonio Peterson RN in Right Antecubital via Peripheral IV. Or dered by Jony Gaytan. 15:10:23 HR=98 bpm, HLIQ=762/78 mmhg, SpO2=95.0 %, Resp=13 B/min 15:12:03 1 mg VERSED given in lab by Marco Antonio Peterson RN in Right Antecubital via Peripheral IV. Ordere d by Jony Gaytan. Time Out. Correct patient, correct procedure, correct physician, power injector loaded with con trast with surgical team 15:12:52 present. Time Out Concurred by MD and individual staff in procedure. 15:13:01 25 mcg FENTANYL given in lab by Marco Antonio Peterson RN in Right Antecubital via Peripheral IV. Or dered by Jony Gaytan. 15:14:14 Case Start 15:14:15 20 mL 1% XYLOCAINE given in lab by Jony Gaytan in Right Groin via Subcutaneous. Ordered by Jony Gaytan. 15:15:22 HR=97 bpm, BIBI=796/75 mmhg, SpO2=96.0 %, Resp=13 B/min 15:16:53 Access site was Right Femoral Artery. 15:17:06 A SHEATH, FR5 TERUMO (10CM) FR 5 was advanced into the Fem Art (right) using the Percutaneo us technique. A PIG ANG 145 DXTERITY CATHETER FR 5 was advanced over a wire. OMNIPAQUE, 350 MG, 150ML 150ML w as used 15:18:00 for injections. 15:20:23 HR=95 bpm, MFDE=531/73 mmhg, SpO2=96.0 %, Resp=10 B/min Recorded Pressure: LV, VC=067, Condition=Condition 1 15:20:26 (Left Ventricle) LV 100/6/7 15:20:42 1 mg VERSED given in lab by Marco Antonio Peterson RN in Right Antecubital via Peripheral IV. Ordere d by Jony Gaytan. 15:21:27 The LV was injected at 12 cc/sec for a total of 36. OMNIPAQUE, 350 MG, 50ML 50ML used. 15:21:47 25 mcg FENTANYL given in lab by Marco Antonio Peterson RN in Right Antecubital via Peripheral IV. Or dered by Jony Gaytan. Recorded Pressure: LV, Ao, HR=95, Condition=Condition 1 15:23:25 (Left Ventricle) LV 94/2/8, (Aorta) Ao 93/68/81 15:24:20 Catheter was removed A JL 4.0 INFINITI CATHETER FR 5 was advanced over a wire. OMNIPAQUE, 350 MG, 150ML 150ML was us ed for 15:25:14 injections. 15:25:24 HR=95 bpm, FAAC=703/75 mmhg, SpO2=97.0 %, Resp=11 B/min 15:25:42 The LCA was injected and visualized at various angles. OMNIPAQUE, 350 MG, 150ML 150ML used . After removing the current catheter a AR MOD INFINITI CATHETER FR 5 was advanced over a WIRE, 3 MMJ .035 180CM 15:28:20 180CM. 15:29:11 The RCA was injected and visualized at various angles. OMNIPAQUE, 350 MG, 150ML 150ML used . 15:30:01 Catheter was removed 15:30:11 A Left Heart Cath was performed. 15:30:25 HR=95 bpm, XWAE=775/71 mmhg, SpO2=97.0 %, Resp=11 B/min 15:35:26 HR=84 bpm, RKLR=324/73 mmhg, SpO2=97.0 %, Resp=22 B/min A JL 4.0 INFINITI CATHETER FR 5 was advanced over a wire. OMNIPAQUE, 350 MG, 150ML 150ML was us ed for 15:38:18 injections. 15:38:40 1 mg VERSED given in lab by Marco Antonio Peterson RN in Right Antecubital via Peripheral IV. Ordere d by Jony Gaytan. 15:39:11 The LCA was injected and visualized at various angles. OMNIPAQUE, 350 MG, 150ML 150ML used . 15:40:06 Catheter was removed 15:40:27 HR=65 bpm, FMLP=257/62 mmhg, SpO2=97.0 %, Resp=18 B/min 15:41:52 An injection in the Fem Art (right) was made through the SHEATH, FR5 TERUMO (10CM) FR 5. 15:42:00 Right groin access site prepped with betadine for closure device deployment. 15:44:42 VASCADE, FR5 CLOSURE SYSTEM FR 5 placement in the Fem Art (right) 15:45:24 HR=84 bpm, HXQO=044/83 mmhg, SpO2=97.0 %, Resp=11 B/min 15:50:25 HR=91 bpm, UNDG=585/71 mmhg, SpO2=96.0 %, Resp=13 B/min 15:50:57 Case End 15:50:58 Sterile dressing applied to site 15:50:59 No case complications noted. 15:51:00 Cine recording checked. 15:51:02 Bedside Report will be given. Assessment: Final Case, HR=86 BPM, Rhythm=afib, QING=719/71 mmhg, Chest Pain=0 Right Pulses: Dony Ped=1, Femoral=1 15:51:04 Left Pulses: Dony Ped=1, Femoral=1 Neurological: State=Alert, Ox3, MAGALLON Respiration: Resp=13 B/min, SpO2=97 % 15:54:57 Vitals capture stopped. 15:56:39 Patient moved to bed 15:57:44 Patient transported to [facility]. End Study - Contrast Media Used In Study Contrast Total Opened (mL) Total Used (mL) Total Wasted (mL) Omnipaque 145 145 0 End Study - Maximum Contrast Load Max Contrast Load (mL) 694.4 End Study - Radiation Exposure Fluoro Time (minutes) 2.5 End Study - Sheaths Sheaths Pulled By Sheath Hold Time (min) Obi Muñoz 5 End Study - Patient Fluids IV Intake (mL) Total Output (mL) 700 End Study - Patient Disposition Complications Transferred To Interventional Outcome No Telemetry Bed No attempt made
--- NOTE | 2017-12-12 16:14 | MA ---
cc: Jony Gaytan MD DATE: 12/12/2017 INDICATIONS: Unstable angina, class III angina, CAD. PROCEDURE PERFORMED: 1. Retrograde left heart catheterization with left ventriculography and selective coronary angiography. 2. Moderate sedation. ACCESS SITE: Right femoral artery. EQUIPMENT USED: A 5-Sami pigtail catheter, 5-Sami JL4 and AR modified coronary catheters. MEDICATIONS: Versed IV, fentanyl IV. CONTRAST: Omnipaque 145 mL. COMPLICATIONS: None. BLOOD LOSS: Less than 10 mL METHOD OF HEMOSTASIS: VASCADE closure. RESULTS: A. HEMODYNAMICS: Heart rate 80 beats per minute. Left ventricular end-diastolic pressure 5 mmHg Left ventricle 95/5. Aorta 95/68/81. B. LEFT VENTRICULOGRAPHY: Ejection fraction 45 percent. Wall motion: Mild global hypokinesis. No mitral regurgitation. C. CORONARY ANGIOGRAPHY: Left main coronary artery is patent. Left anterior descending coronary artery has mild 30% narrowing in the proximal portion prior to the first diagonal branch. D1 patent. Ramus intermedius is patent. Left circumflex artery is patent. OM1 patent. OM2 is a large vessel with 40% proximal stenosis. Right coronary artery is a dominant vessel, which is patent. PDA patent. PLV patent. DIAGNOSES: 1. Mild non-obstructive coronary artery disease. 2. Mild left ventricular systolic dysfunction. DISPOSITION: Mr. Burgess was found to have no evidence of significant obstructive coronary artery disease. We will restart anticoagulation for his atrial fibrillation. We will consider starting him on antiarrhythmic therapy if necessary. We will continue aggressive modification of his cardiac risk factors. I will see him back for followup in our office after discharge. MD STUART Kaba/STEPHANIE , 03:51 PM , 04:13 PM JENIFFER
[2017-12-12] MEDS ORDERED: SODIUM CHLOR 0.9% 1000 ML INJ 500 ML IV SCH (18:00)
[2017-12-12] MEDS ORDERED: IOHEXOL 350 MG/ML 100 ML BTL (for Cath Lab) OTHER ONE (18:56)
[2017-12-12] MEDS ORDERED: IOHEXOL 350 MG/ML 50 ML BTL (for Cath Lab) OTHER ONE (18:56)
--- NOTE | 2017-12-12 19:56 | HHI.PR ---
Subjective Remarks 62-year-old male who presented with atrial fibrillation RVR. Today he is rate controlled with a regular rhythm. He has no symptoms. Heart catheterization planned for today. Objective Vitals Vital Signs Date Time Temp Pulse Resp B/P (MAP) Pulse Ox O2 Delivery O2 Flow Rate FiO2 12/12/17 18:00 96 12/12/17 17:00 97 12/12/17 16:10 98.3 91 16 99/78 (85) 96 12/12/17 14:00 98 12/12/17 13:00 100 12/12/17 12:00 96 12/12/17 11:00 97.8 98 16 120/80 (93) 98 12/12/17 11:00 97 12/12/17 10:00 98 12/12/17 09:00 96 12/12/17 08:00 98 12/12/17 07:46 97.7 99 18 126/74 (91) 96 12/12/17 07:00 97 12/12/17 07:00 95 Room Air 12/12/17 06:00 82 12/12/17 05:00 79 12/12/17 04:00 Room Air 12/12/17 04:00 98.2 62 18 129/70 (89) 96 12/12/17 04:00 62 12/12/17 03:00 58 12/12/17 02:00 63 12/12/17 01:40 100 12/12/17 01:00 57 12/12/17 00:00 61 12/12/17 00:00 98.6 61 20 106/60 (75) 96 12/12/17 00:00 Room Air 12/11/17 23:00 58 12/11/17 22:00 Room Air 12/11/17 22:00 63 12/11/17 21:00 66 12/11/17 20:00 98.3 61 20 104/66 (79) 97 12/11/17 20:00 61 I/O 12/11/17 12/11/17 12/11/17 12/12/17 12/12/17 12/12/17 07:00 15:00 23:00 07:00 15:00 23:00 Intake Total 480 ml 720 ml 480 ml 540 ml Output Total 900 ml 500 ml 800 ml 2820 ml Balance -420 ml 220 ml -320 ml -2280 ml Intake Oral 480 ml 720 ml 480 ml 540 ml Output Urine Total 900 ml 500 ml 800 ml 2820 ml # Voids 6 # Bowel Movements 0 2 0 Result Diagram: 12/09/17 0142 12/11/17 0555 Objective Remarks GENERAL: Well-nourished, well-developed patient. SKIN: Warm and dry. HEAD: Normocephalic. EYES: No scleral icterus. No injection or drainage. NECK: Supple, trachea midline. No JVD or lymphadenopathy. CARDIOVASCULAR: Regular rate and rhythm 1/6 LASHANDA, gallops, or rubs. RESPIRATORY: Breath sounds equal bilaterally. No accessory muscle use. GASTROINTESTINAL: Abdomen soft, non-tender, nondistended. EXTREMITIES: No cyanosis, or edema. NEUROLOGICAL: Awake, alert, and oriented x 3. Non-focal. A/P Assessment and Plan Atrial fibrillation with RVR Patient has a history of recent ablation in October 2017, this episode is a recurrent Continue on Multitak, Cardizem, beta-cody Heart catheterization today Amy held Appreciate cardiology intervention NSTEMI Troponin elevated to 0.14 Underwent successful cardiac catheterization today Continue statin Plan for discharge tomorrow morning History of BPH Continue home meds DVT prophylaxis Troy Campuzano MD Dec 12, 2017 19:56
[2017-12-12] MEDS: TAMSULOSIN HCL 0.4 MG CAP PO SCH (21:03)
[2017-12-13] VITALS: BP 99/60; PULSE 99; RESP 20; TEMP 98; O2SAT 95
[2017-12-13 00:02] VITALS: PULSE 98
[2017-12-13 04:00] VITALS: BP_SYST 104; BP_SYST 120; BP_DIAS 85; BP_DIAS 87; PULSE 102; PULSE 74; RESP 18; RESP 20; TEMP 97.9; TEMP 98.4; O2SAT 94; O2SAT 96
[2017-12-13 04:01] VITALS: PULSE 100
[2017-12-13] MEDS: SODIUM CHLOR 0.9% 1000 ML INJ 1,000 ML IV SCH (04:53)
[2017-12-13 06:35] LABS: CHOLESTEROL/ HDL RATIO 3.55 RATIO; HDL CHOLESTEROL 28.7 MG/DL (40.0-60.0)
[2017-12-13 07:21] VITALS: PULSE 102
[2017-12-13 08:24] VITALS: BP 116/72; PULSE 72; RESP 16; TEMP 98; O2SAT 93
[2017-12-13] MEDS: DILTIAZEM-CD 240 MG CAP ER PO SCH (08:31)
[2017-12-13] MEDS: DRONEDARONE 400 MG TAB PO SCH (08:31)
[2017-12-13] MEDS: PRAVASTATIN SOD 40 MG TAB PO SCH (08:31)
[2017-12-13] MEDS: FINASTERIDE 5 MG TAB PO SCH (08:31)
[2017-12-13] MEDS: METOPROLOL TARTRATE 50 MG TAB PO SCH (08:31)
[2017-12-13] MEDS: SODIUM CHLORIDE 0.9% FLUSH 10 ML FLUSH IV FLUSH SCH (08:33)
[2017-12-13] MEDS ORDERED: DILT240C44 PO (09:12)
[2017-12-13] MEDS ORDERED: METO-309 PO (09:12)
--- NOTE | 2017-12-13 09:18 | HHI.DS ---
Discharge Summary Admission Date Dec 09, 2017 at 03:02 Discharge Date: Dec 13, 2017 Admitting Diagnosis AFRVR/atrial flutter; elevated troponinI (1) Atrial fibrillation with RVR ICD Code: I48.91 - Unspecified atrial fibrillation Procedures Heart Catheterization, no occlusions found 12/12/17 Brief History - From Admission patient is a 62 years old male with history of a fib s/p ablation last 2017, VAD last evening developed palpitations associated with some chest pressure- took his heart rate0- noted to be around 180s. sent here and admitted Plan was to do cath today- however- took Xarelto last evening and cancelled. Physical activity mainly limited by right hip pain- chronic patient currently in SR - denies any chest pain or shortness of breath CBC/BMP: 12/09/17 0142 12/11/17 0555 Significant Findings Laboratory Tests Test 12/11/17 05:55 12/13/17 05:02 Calcium Level 8.3 MG/DL (8.5-10.1) Chloride Level 108 MEQ/L (98-107) Estimat Glomerular Filtration Rate 84 ML/MIN (>89) Cholesterol Level 102 MG/DL (120-200) HDL Cholesterol 28.7 MG/DL (40.0-60.0) PE at Discharge GENERAL: Well-nourished, well-developed patient. SKIN: Warm and dry. HEAD: Normocephalic. EYES: No scleral icterus. No injection or drainage. NECK: Supple, trachea midline. No JVD or lymphadenopathy. CARDIOVASCULAR: Regular rate and rhythm 1/6 LASHANDA, gallops, or rubs. RESPIRATORY: Breath sounds equal bilaterally. No accessory muscle use. GASTROINTESTINAL: Abdomen soft, non-tender, nondistended. EXTREMITIES: No cyanosis, or edema. NEUROLOGICAL: Awake, alert, and oriented x 3. Non-focal. Hospital Course 62-year-old male who presented to the deltoid the ER with atrial fibrillation and RVR. He has a history of atrial fibrillation and underwent ablation a few months ago. He is unsure about what triggered this. On admission he did have some elevated troponins, however, heart catheterization performed yesterday did not reveal any significant occlusions and no stents were placed. Cardiology discussed his case with me yesterday and he has been cleared for discharge this morning. Medication recommendations were an increase of his metoprolol and addition of diltiazem. Other than that he is to resume his other home medications. He will be following up with Dr. Gaytan in 2 weeks. Pt Condition on Discharge: Good Discharge Disposition: Discharge Home Discharge Time: <= 30 minutes Discharge Instructions DIET: Follow Instructions for: Heart Healthy Diet Activities you can perform: Regular-No Restrictions Troy Murray MD Dec 13, 2017 09:18
--- NOTE | 2017-12-13 09:45 | PD.CARD.PN ---
Subjective Subjective Remarks No CP or SOB, occ palpitations, episodes of AF w RVR earlier Objective Medications Current Medications Medications (Trade) Dose Ordered Sig/Aparna Route Start Time Stop Time Status Last Admin Sodium Chloride 1,000 ml @ 42 mls/hr [id number] IV 12/09/17 01:45 12/12/17 09:37 (NS Flush) 2 ml BID IV FLUSH 12/09/17 09:00 12/13/17 08:33 (NS Flush) 2 ml UNSCH PRN IV FLUSH 12/09/17 03:00 (Proscar) 5 mg DAILY PO 12/09/17 09:00 12/13/17 08:31 (Flomax) 0.4 mg HS PO 12/09/17 21:00 12/12/17 21:03 (Pravachol) 40 mg DAILY PO 12/09/17 09:00 12/13/17 08:31 (Cardizem Cd) 240 mg DAILY PO 12/09/17 11:30 12/13/17 08:31 (Multaq) 400 mg BIDPC PO 12/09/17 18:00 12/13/17 08:31 (Ambien) 10 mg HS PRN PO 12/10/17 21:00 12/11/17 19:48 (Lopressor) 50 mg BID PO 12/10/17 21:00 12/13/17 08:31 Vital Signs / I&O Vital Signs Date Time Temp Pulse Resp B/P (MAP) Pulse Ox O2 Delivery O2 Flow Rate FiO2 12/13/17 08:24 98.0 72 16 116/72 (87) 93 12/13/17 07:21 102 12/13/17 04:01 100 12/13/17 04:00 97.9 102 20 104/87 (93) 94 12/13/17 00:02 98 12/13/17 00:00 98.0 99 20 99/60 (73) 95 12/12/17 20:00 98.8 100 18 99/66 (77) 94 12/12/17 19:57 99 12/12/17 18:00 96 12/12/17 17:00 97 12/12/17 16:10 98.3 91 16 99/78 (85) 96 12/12/17 14:00 98 12/12/17 13:00 100 12/12/17 12:00 96 12/12/17 11:00 97.8 98 16 120/80 (93) 98 12/12/17 11:00 97 12/12/17 10:00 98 I/O 12/12/17 12/12/17 12/12/17 12/13/17 12/13/17 12/13/17 07:00 15:00 23:00 07:00 15:00 23:00 Intake Total 480 ml 540 ml Output Total 800 ml 2820 ml 1400 ml Balance -320 ml -2280 ml -1400 ml Intake Oral 480 ml 540 ml Output Urine Total 800 ml 2820 ml 1400 ml # Bowel Movements 0 Physical Exam GENERAL: In NAD SKIN: Warm and dry. HEAD: Normocephalic. EYES: No scleral icterus. No injection or drainage. NECK: Supple, trachea midline. No JVD or lymphadenopathy. CARDIOVASCULAR: Regular rate and rhythm without murmurs, gallops, or rubs. RESPIRATORY: Breath sounds equal bilaterally. No accessory muscle use. GASTROINTESTINAL: Abdomen soft, non-tender, nondistended. MUSCULOSKELETAL: No cyanosis, or edema. Laboratory Laboratory Tests Test 12/13/17 05:02 Triglycerides Level 117 MG/DL Cholesterol Level 102 MG/DL LDL Cholesterol 50 MG/DL HDL Cholesterol 28.7 MG/DL Cholesterol/HDL Ratio 3.55 RATIO Assessment and Plan Problem List: (1) Unstable angina pectoris ICD Codes: I20.0 - Unstable angina (2) Atrial fibrillation with RVR ICD Codes: I48.91 - Unspecified atrial fibrillation (3) CAD (coronary artery disease) ICD Codes: I25.10 - Atherosclerotic heart disease of [place] coronary artery without angina pectoris (4) Status post total hip replacement, right ICD Codes: Z96.641 - Presence of right artificial hip joint Status: Acute Assessment and Plan In SR, occ episodes of AF w RVR. Cath with mild LV syst dysfx and mild nonobstructive CAD. DC home. Continue current meds including Multaq. Will switch to amio later if necessary. Will schedule OP f/u within 2 w. Jony Gaytan MD Dec 13, 2017 09:45
== END 2017-12-13 10:54 | disposition home or self-care (01) | DRG 281 ==
LOC: PHED 01:29 → PHEDA 03:02 → HCIS 08:39
PROVIDERS: ADMIT Family Medicine; ATTEND Family Medicine
PROC: B2151ZZ Fluoroscopy of Left Heart using Low Osmolar Contrast (ICD-10-PCS; 2017-12-12)
PROC: B2111ZZ Fluoroscopy of Multiple Coronary Arteries using Low Osmolar Contrast (ICD-10-PCS; 2017-12-12)
PROC: 4A023N7 Measurement of Cardiac Sampling and Pressure, Left Heart, Percutaneous Approach (ICD-10-PCS; principal; 2017-12-12 14:45)
DX: I48.91 Unspecified atrial fibrillation (principal); I21.4 Non-ST elevation (NSTEMI) myocardial infarction; N17.9 Acute kidney failure, unspecified; I25.110 Atherosclerotic heart disease of native coronary artery with unstable angina pectoris; E78.5 Hyperlipidemia, unspecified; Z79.02 Long term (current) use of antithrombotics/antiplatelets; N40.0 Benign prostatic hyperplasia without lower urinary tract symptoms; M25.551 Pain in right hip; G89.29 Other chronic pain; I10 Essential (primary) hypertension; E66.3 Overweight
CPT/HCPCS: 71045; 80048; 80061; 82550; 83735; 84100; 84439; 84443; 84484; 85025; 93005; 93458; 96365; 99152; 99153; C1760; C1769; C1893; G0269; J2250; J3010; J7030; Q9967

== ENCOUNTER 2017-12-27 12:48 | Day surgery (SDC) | payer OTHER ==
[~2017-12-27 12:48] MED LIST changes: +DILT240C44 PO; -ECASA81 PO; -MELO15TA20 PO; +METO-309 PO; -METO25TA3 PO
[2017-12-27] MEDS ORDERED: MULT400T PO (13:12)
[2017-12-27] MEDS ORDERED: CHLORHEXIDINE GLUCONATE 2 % 1 PACK (2 CLOTHS) TOPICAL PRN (13:30)
[2017-12-27] MEDS ORDERED: LACTATED RINGER'S 1000 ML IV PRN (13:30)
[2017-12-27] MEDS ORDERED: METOPROLOL TARTRATE 25 MG TAB PO PRN (13:30)
[2017-12-27] MEDS ORDERED: SODIUM CHLORID 0.9% 500 ML IV PRN (13:30)
[2017-12-27] MEDS ORDERED: POVIDONE IODINE 5% (ANTISEPSIS KIT) 4 APPLICATIONS EACH NARE PRN (13:30)
--- NOTE | 2017-12-27 17:03 | MR ---
cc: Jony Gaytan MD DATE: 12/27/2017 INDICATIONS: Atrial tachycardia, atrial flutter with rapid ventricular response, history of ablation for atrial fibrillation. PROCEDURE PERFORMED: DC cardioversion. DESCRIPTION OF PROCEDURE: After the patient was sedated by anesthesia, a 50 joule biphasic shock was delivered and cardioverted the patient to sinus rhythm. The patient remained stable and was discharged in stable condition. DIAGNOSIS: Successful cardioversion of atrial fibrillation/flutter. DISPOSITION: Mr. Burgess will continue his current medical program including anticoagulation. I will see him back for followup in our office after discharge. oJny Gaytan MD OQ/DL , 04:53 PM , 05:01 PM MTDD
--- NOTE | 2017-12-28 10:30 | EKG ---
Date Performed: 12/27/2017 Time Performed: 13:23:08 PTAGE: 62 years EKG: Atrial flutter/tachyardia with 2:1 conduction Abnormal ECG PREVIOUS TRACING : 12/09/2017 07.49 Rate is even faster compared to the old tracing. DOCTOR: Bob Caraballo Interpretating Date/Time 12/28/2017 10:30:23
== END 2017-12-27 16:50 | disposition home or self-care (01) ==
LOC: HDIC 12:48 → HSDC 12:48
PROVIDERS: ATTEND Internal Medicine Interventional Cardiology
DX: I48.0 Paroxysmal atrial fibrillation (principal); I10 Essential (primary) hypertension; I25.10 Atherosclerotic heart disease of native coronary artery without angina pectoris; E78.5 Hyperlipidemia, unspecified
CPT/HCPCS: 92960; 93005